=== PATIENT | male | born 1955 | race Caucasian/White ===

== ENCOUNTER 2017-11-20 07:52 | Emergency (ER) | payer SELFPAY ==
[2017-11-20] MEDS ORDERED: Aspirin 325 MG TAB ONE (08:40)
[2017-11-20 08:43] LABS: #Basophils 0.1 thou/uL (0.0-0.2); #Eosinphils 0.2 thou/uL (0.0-0.7); #Lymphocytes 1.6 thou/uL (1.20-3.40); #Monocytes 0.6 thou/uL (0.11-0.59); #Neutrophils 6.5 thou/uL (1.40-6.50); %Basophils 0.8 % (0.0-1.0); %Eosinophils 2.6 % (0.0-10.0); %Monocytes 6.4 % (0.0-10.0); %Neutrophils 72.3 % (42.0-75.0); Hemoglobin 13.4 g/dL (14.0-18.0); Mean Corpuscular HGB CONC 34.8 g/dL (32.0-36.0); Mean Corpuscular Hemoglobin 34.7 pg (27.0-31.0); Mean Corpuscular Volume 99.8 fL (78.0-98.0); Mean Platelet Volume 5.9 fL (7.4-10.4); Platelet Count 351 thou/uL (130-400); RBC Distribution Width 11.9 % (11.5-14.5); Red Blood Cell (RBC) Count 3.85 mill/uL (4.70-6.10); White Blood Cell (WBC) Count 8.9 thou/uL (4.8-10.8)
[2017-11-20 09:08] LABS: ALT (SGPT) 18 U/L (8-55); AST (SGOT) 21 U/L (5-34); Albumin 4.6 g/dL (3.4-4.8); Alkaline Phosphatase 67 U/L (40-150); Anion Gap 14 mmol/L (10-20); BUN (Urea Nitrogen) 20 mg/dL (8.4-25.7); Bilirubin, Total 0.6 mg/dL (0.2-1.2); Calc. Creatinine Clearance 0 mL/min (70-130); Calcium 9.6 mg/dL (7.8-10.44); Carbon Dioxide 27 mmol/L (23-31); Chloride 97 mmol/L (98-107); Estimated GFR-MDRD 84; Globulin 2.8 g/dL (2.4-3.5); Glucose 119 mg/dL (80-115); Lipase 27 U/L (8-78); Potassium 4.6 mmol/L (3.5-5.1); Protein, Total 7.4 g/dL (5.8-8.1); Sodium 133 mmol/L (136-145)
[2017-11-20 09:14] LABS: CKMB 2.2 ng/mL (0-6.6); Troponin I Less than 0.010 ng/mL (< 0.028)
--- NOTE | 2017-11-20 10:16 | RAD ---
CHEST ONE VIEW: HISTORY: A 62-year-old male with a history of weakness, diaphoresis, diarrhea, and dehydration. COMPARISON: 11/20/2015 FINDINGS: Monitor leads overly the chest. Healed right rib fractures are noted. Heart size is within normal l imits. There is an irregular shaped, abnormal opacity in the right upper lobe, measuring approximate ly 1 x 1.5 cm, which was not present on the prior study. This could represent a developing primary l marci mass. A nonemergent follow-up chest CT scan is recommended. IMPRESSION: 1. Approximately 1 x 1.5 cm in diameter, poorly circumscribed opacity seen in the region of the righ t upper lobe, worrisome for a developing small lung mass or scar. Consider nonemergent follow-up [facility] CT scan for further assessment. 2. Healed right rib fractures. 3. No evidence of other acute process. POS: OFF
[2017-11-20 10:39] LABS: Bilirubin Negative (Negative); Blood, Urine Negative (Negative); Clarity CLOUDY (Clear); Glucose, Urine (Dipstick) Negative (Negative); Leukocyte Negative (Negative); Nitrite Negative (Negative); Protein, Urine (Dipstick) Trace mg/dL (Neg-Trace); Specific Gravity, Urine 1.017 (1.002-1.036); pH, Urine 6.5 (5.0-9.0)
[2017-11-20 12:36] LABS: Troponin I Less than 0.010 ng/mL (< 0.028)
== END 2017-11-20 12:44 | disposition home or self-care (01) ==
LOC: ERS 07:52
DX: R53.1 Weakness (principal); J44.9 Chronic obstructive pulmonary disease, unspecified; I10 Essential (primary) hypertension; F17.210 Nicotine dependence, cigarettes, uncomplicated; Z71.6 Tobacco abuse counseling
CPT/HCPCS: 36415; 36416; 71045; 80053; 81003; 82553; 83690; 83880; 84484; 85025; 93005; 96360; 99406

== ENCOUNTER 2017-11-21 09:09 | Inpatient (IN) | payer OTHER, SELFPAY ==
[2017-11-21] MEDS ORDERED: Albuterol Sulfate 2.5 mg/0.5 ml Neb ONE ×3 (09:33)
[2017-11-21] MEDS ORDERED: Albuterol Sulfate 2.5 mg/3 ml Neb ONE (09:33)
[2017-11-21] MEDS ORDERED: Ondansetron HCl/PF 4 MG/2 ML Vial ONE (09:48)
[2017-11-21 10:53] LABS: #Eosinphils 0.1 thou/uL (0.0-0.7); #Lymphocytes 0.9 thou/uL (1.20-3.40); #Monocytes 0.5 thou/uL (0.11-0.59); #Neutrophils 9.1 thou/uL (1.40-6.50); %Basophils 0.4 % (0.0-1.0); %Lymphocytes 8.3 % (21.0-51.0); %Monocytes 4.3 % (0.0-10.0); Hemoglobin 13.1 g/dL (14.0-18.0); Mean Corpuscular HGB CONC 35.1 g/dL (32.0-36.0); Mean Corpuscular Hemoglobin 35.3 pg (27.0-31.0); Platelet Count 314 thou/uL (130-400); White Blood Cell (WBC) Count 10.6 thou/uL (4.8-10.8)
[2017-11-21 11:13] LABS: ALT (SGPT) 16 U/L (8-55); AST (SGOT) 19 U/L (5-34); Albumin 4.2 g/dL (3.4-4.8); Alkaline Phosphatase 62 U/L (40-150); Anion Gap 14 mmol/L (10-20); BUN (Urea Nitrogen) 14 mg/dL (8.4-25.7); Bilirubin, Total 0.6 mg/dL (0.2-1.2); CKMB 2.2 ng/mL (0-6.6); Calc. Creatinine Clearance 0 mL/min (70-130); Calcium 8.9 mg/dL (7.8-10.44); Carbon Dioxide 24 mmol/L (23-31); Chloride 100 mmol/L (98-107); Estimated GFR-MDRD Greater than 90; Globulin 2.5 g/dL (2.4-3.5); Glucose 169 mg/dL (80-115); Potassium 3.9 mmol/L (3.5-5.1); Protein, Total 6.7 g/dL (5.8-8.1); Sodium 134 mmol/L (136-145); Troponin I Less than 0.010 ng/mL (< 0.028)
[2017-11-21] MEDS ORDERED: Albuterol Sulfate 2.5 mg/3 ml Neb NEB PRN (11:32)
[2017-11-21] MEDS ORDERED: ISOVUE-370 76%-LOCM 1 ML ONE (11:42)
[2017-11-21] MEDS ORDERED: Acetaminophen 500 MG TAB PO PRN (11:49)
[2017-11-21] MEDS ORDERED: Sodium Chloride 0.9% 500 ML IV SCH (12:00)
--- NOTE | 2017-11-21 13:09 | RAD ---
PORTABLE AP CHEST X-RAY: 11/21/2017 HISTORY: Dyspnea. Shortness of breath. COMPARISON: 11/20/2017 FINDINGS: The cardiac silhouette and pulmonary vasculature are within normal limits. The previously described, slightly irregular density within the right upper lung zone is again seen. It is less conspicuous o n the current study but does persist. The left lung is clear. Remote right-sided rib fractures are again present. No other interval change. IMPRESSION: 1. Stable, slightly irregular density within the right upper lung zone. This is more conspicuous on the prior study but is also present on this study. A neoplastic process cannot be entirely excluded based on this examination. This could represent an area of scarring, but CT scan thorax is recommen ded on a nonemergent basis for further evaluation. 2. Remote right-sided rib fractures. POS: [facility]
[2017-11-21] MEDS: Sodium Chloride 0.9% 1,000 ML IV SCH ×2 (13:23→18:20)
[2017-11-21] MEDS: Azithromycin 250 MG TAB PO SCH (14:04)
[2017-11-21] MEDS: cefTRIAXone\\ROCEPHIN 1 GM in Sodium Chloride 0.9% 100 ML IVPB SCH (14:04)
--- NOTE | 2017-11-21 14:37 | CT ---
CT ANGIOGRAM CHEST WITH 3D RENDERING: HISTORY: A 62-year-old male with a history of dyspnea and COPD. TECHNIQUE: A CT examination of the chest is performed. FINDINGS: There are some scattered small bullous changes in both lungs, evidence for some chronic lung disease. Poorly circumscribed, somewhat spiculated mass in the right upper lobe, measuring 0.8 cm. Further evaluation with PET scan should be considered. No significant CT evidence for acute pulmonary emboli sm. No mediastinal mass or adenopathy. No significant pleural effusion. The visualized upper abdom en is unremarkable. IMPRESSION: 1. No significant CT evidence for acute pulmonary embolism. 2. Poorly circumscribed mass in the right upper lobe, worrisome for a lung carcinoma. Consider foll ow-up PET scan for further assessment. 3. This mass is a new finding when compared to a CT of 10/27/2015. CODE T POS: [facility]
--- NOTE | 2017-11-21 17:57 | HP ---
DATE OF ADMISSION: 11/21/2017 CHIEF COMPLAINT: Could not breathe. PRIMARY CARE PHYSICIAN: Dr. Cardoso at the [facility] in [place]. HISTORY OF PRESENT ILLNESS: This is a 62-year-old male with known COPD with last flare around 7 years ago, who complains that he was unable to breathe starting around 08:30 this morning. He states that it all started with itching and his skin turning bright red. He decided to take a shower and then progressively noticed that he could not get enough air and was unable to speak. He felt dizzy and lightheaded. He denies any precipitating factors or exposures. He has albuterol and used it this morning without any significant relief. He denies any nausea or vomiting. Denies chest pain or fevers. The patient yesterday was in the emergency room secondary to disorientation, weakness and dizziness as well as a similar episode of itching and redness all over. This occurred early in the morning while preparing for work. He states yesterday his breathing was "not bad." Patient denies any change in routine. Denies any missed medications. His usual use of albuterol is daily 1 or 2 puffs approximately 2-4 times per day. He is not on any other medications to control the symptoms. The only other change in his health history is vomiting that occurred 3 nights ago, as well as a complaint of stomach upset and diarrhea over the past few days, averaging 3-5 loose stools per day. He denies any travel or sick contacts. Denies any precipitants for this. By report from the emergency room physician, EMS found the patient with a systolic blood pressure in the 70s and a pulse ox of 81%, and the patient received 2 DuoNeb and 125 mg solu-medrol en route to [place]. Here, the patient has received 10 mg of albuterol and Hospitalist called for admission. ALLERGIES TO MEDICATIONS: NAPROXEN/ALEVE. Obese. CURRENT MEDICATIONS: Reconciled with the patient, 1. Lisinopril/hydrochlorothiazide unknown dose taken daily, last dose this morning. 2. Albuterol inhaler with daily use as noted above. 3. Thiamine 100 mg daily. 4. Multivitamin daily. 5. Diclofenac daily, unknown dose. PAST MEDICAL HISTORY: 1. Chronic obstructive pulmonary disease. 2. Hypertension. 3. Chronic pain in his shoulders and neck. 4. Osteoarthritis. 5. An abnormal chest x-ray identified yesterday. PAST SURGICAL HISTORY: Back and left wrist. 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 His surrogate decision maker is his and he is a FULL CODE. FAMILY HISTORY: Significant for a brother who of lung cancer, mom who of lung cancer, and a sister with brain cancer. REVIEW OF SYSTEMS: Positive for chills over the past 2 days. The vomiting, stomach upset, and diarrhea noted over the past few days. Negative for nausea or vomiting today, diarrhea today, chest pain, or fevers. All remaining review of systems are reviewed and negative. PHYSICAL EXAMINATION: VITAL SIGNS: Pulse 102, respirations 21, temperature 97.5. Blood pressure 113/ 70 (was 70/54 on arrival) and current pulse ox is 98% on 2 liters, was 89% on room air. GENERAL: He is awake, alert, responsive, able to speak in full sentences, now in no apparent distress. HEENT: Pupils are equal and round. Extraocular movements are intact. Oral mucosa is pink and slightly dry. NECK: Supple, nontender. LYMPHATICS: No palpable cervical or supraclavicular lymphadenopathy. LUNGS: Fair air movement. No audible wheezing, rhonchi, or rales. HEART: Distant heart sounds, normal S1 and S2, regular rate and rhythm, no audible murmurs. ABDOMEN: Soft. Present bowel sounds. Nontender, nondistended. EXTREMITIES: No clubbing, cyanosis, or edema. SKIN: No visible rashes. NEUROLOGIC: No gross deficits. PSYCHIATRIC: He is euthymic, linear, logical, goal directed thought process. LABORATORY DATA: Reviewed. CBC: 10.6, 13.1, 37.2, 314 with an MCV of 100. D-dimer is 1.78. Chemistry: 134, 3.9, 100, 24, 14, 0.83, 169. LFTs negative. Troponin negative. Chest x-ray is personally reviewed, which shows an abnormality in the right upper lobe, by report yesterday poorly circumscribed 1 x 1.5 cm, worrisome for developing lung mass or scar, healed right rib fractures and no evidence of acute process. IMPRESSION: 1. Acute respiratory failure with hypoxia secondary to COPD exacerbation. 2. SIRS criteria without focal source of infection. 3. Dehydration secondary to n/v/diarrhea with dizziness/weakness 4. Hypotension, likely secondary to above. However, cannot rule out sepsis. 3. History of hypertension, currently normotensive. 4. Chronic pain, on nonsteroidal anti-inflammatory drugs therapy. 5. Abnormal chest x-ray with further evaluation needed. 6. Daily alcohol use. 7. Tobacco abuse. PLAN: 1. Admission to the hospital. 2. CT of the chest with contrast to rule out PE, given the acute onset of his symptoms and abnormal d-dimer. We will hydrate with IV fluids and hold his DEENA inhibitor as well as his NSAIDs for the dehydration and for renal protection from the contrast. 3. Start Rocephin and azithromycin to cover for COPD exacerbation as well as continuing steroids. 4. IV fluid hydration, monitoring his blood pressure, monitoring for any signs of alcohol withdrawal with the ASE protocol. 5. We will obtain a lactate level. If diarrhea persists, will need stool studies. 6. Nicotine replacement. Monitor for signs/sx of alcohol withdrawal. 7. DVT prophylaxis with enoxaparin and SCDs. We will manage the patient's pain with Tylenol and tramadol while here avoiding NSAIDs due to the IV contrast. 8. Gastrointestinal prophylaxis not indicated. 9. Code status is FULL and surrogate decision maker is the patient's . The patient is at high risk given age, comorbidities, and current presentation. I reviewed the plan of care with the patient and his . No questions or further needs at end of evaluation. Addendum - CT-A negative for PE. It does show a 0.8 cm mass in the right upper lobe, spiculated and suspicious for malignancy. Discussed this with patient and his - that this will need a biopsy or other type of further evaluation. Will place consult for Pulmonology to evaluate current sx of COPD exacerbation as well as to answer questions on how to proceed with the evaluation of the mass. No questions or further needs at end of eval. MTDD
[2017-11-21] MEDS: Nicotine 21 MG PATCH TD SCH (21:13)
[2017-11-22] MEDS: Sodium Chloride 0.9% 1,000 ML IV SCH ×2 (04:41→17:14)
[2017-11-22 05:40] LABS: #Lymphocytes 0.5 thou/uL (1.20-3.40); #Monocytes 0.2 thou/uL (0.11-0.59); #Neutrophils 8.9 thou/uL (1.40-6.50); %Eosinophils 0.1 % (0.0-10.0); %Lymphocytes 5.6 % (21.0-51.0); %Neutrophils 92.3 % (42.0-75.0); Hemoglobin 10.3 g/dL (14.0-18.0); Mean Corpuscular HGB CONC 33.8 g/dL (32.0-36.0); Mean Corpuscular Hemoglobin 33.8 pg (27.0-31.0); Mean Platelet Volume 6.7 fL (7.4-10.4); Platelet Count 269 thou/uL (130-400); RBC Distribution Width 12.1 % (11.5-14.5); Red Blood Cell (RBC) Count 3.04 mill/uL (4.70-6.10); White Blood Cell (WBC) Count 9.6 thou/uL (4.8-10.8)
[2017-11-22 05:45] LABS: Anion Gap 12 mmol/L (10-20); BUN (Urea Nitrogen) 9 mg/dL (8.4-25.7); Calc. Creatinine Clearance 105 mL/min (70-130); Calcium 8.5 mg/dL (7.8-10.44); Carbon Dioxide 25 mmol/L (23-31); Chloride 101 mmol/L (98-107); Estimated GFR-MDRD Greater than 90; Glucose 145 mg/dL (80-115); Potassium 3.6 mmol/L (3.5-5.1); Sodium 134 mmol/L (136-145)
[2017-11-22] MEDS: Azithromycin 250 MG TAB PO SCH (08:27)
[2017-11-22] MEDS: Enoxaparin Sodium 40 MG/0.4 ML SYRINGE SC SCH (08:27)
[2017-11-22] MEDS: cefTRIAXone\\ROCEPHIN 1 GM in Sodium Chloride 0.9% 100 ML IVPB SCH (12:42)
--- NOTE | 2017-11-22 13:18 | PDOC.PN ---
- Subjective Encounter Start Date: 11/22/17 Encounter Start Time: 11:30 Subjective: pt up in bed no complains - Objective Resuscitation Status: Resuscitation Status FULL:Full Resuscitation Vital Signs & Weight: Vital Signs (12 hours) Temp Pulse Resp BP BP Pulse Ox 11/22/17 12:27 148/80 H 11/22/17 11:59 97.5 F L 87 16 148/80 H 100 11/22/17 08:30 97.5 F L 81 18 129/88 100 11/22/17 07:50 97.5 F L 81 18 129/88 100 11/22/17 04:00 97.8 F 87 20 124/83 98 Weight Weight 135 lb 7 oz I&O: 11/21/17 11/22/17 11/23/17 06:59 06:59 06:59 Intake Total 1379 Output Total 1200 Balance 179 Result Diagrams: 11/22/17 04:15 11/22/17 04:15 Phys Exam - Physical Examination HEENT: PERRLA, moist MMs, sclera anicteric, TM's clear, oral pharynx no lesions , 2+ tonsils Neck: no nodes, no JVD, supple, full ROM Respiratory: wheezing present Cardiovascular: RRR, no significant murmur, no rub, gallop, irregular Gastrointestinal: soft, non-tender, no distention, positive bowel sounds Musculoskeletal: no edema, pulses present, edema present Neurological: non-focal, normal sensation, moves all 4 limbs Dx/Plan (1) COPD exacerbation Code(s): J44.1 - CHRONIC OBSTRUCTIVE PULMONARY DISEASE W (ACUTE) EXACERBATION Status: Acute (2) Pulmonary mass Code(s): R91.8 - OTHER NONSPECIFIC ABNORMAL FINDING OF LUNG FIELD Status: Acute - Plan will continue tx for copd exab -: pulmonary consulted for lung lesion, pt has no weight loss -: he has a nicotine patch * . Review of Systems - Review of Systems ENT: negative: Ear Pain, Ear Discharge, Nose Pain, Nose Discharge, Nose Congestion, Mouth Pain, Mouth Swelling, Throat Pain, Throat Swelling, Other Respiratory: negative: Cough, Dry, Shortness of Breath, Hemoptysis, SOB with Excertion, Pleuritic Pain, Sputum, Wheezing Cardiovascular: negative: chest pain, palpitations, orthopnea, paroxysmal nocturnal dyspnea, edema, light headedness, other Gastrointestinal: negative: Nausea, Vomiting, Abdominal Pain, Diarrhea, Constipation, Melena, Hematochezia, Other Genitourinary: negative: Dysuria, Frequency, Incontinence, Hematuria, Retention , Other - Medications/Allergies Allergies/Adverse Reactions: Allergies Allergy/AdvReac Type Severity Reaction Status Date / Time naproxen sodium [From Aleve] Allergy Unknown Verified 04/08/13 12:18 venom-honey bee Allergy Verified 10/28/15 00:21 Medications: Current Medications Acetaminophen (Tylenol) 500 mg PO Q6H PRN PRN Reason: Fever/Mild Pain Albuterol Sulfate (Ventolin) 2.5 mg NEB [id number] PRN PRN Reason: SOB &/or Wheezing Albuterol/Ipratropium (Duoneb) 3 ml NEB [id number] PRN PRN Reason: SOB &/or Wheezing Azithromycin (Zithromax) 500 mg PO DAILY [facility] Last Admin: 11/22/17 08:27 Dose: 500 mg Enoxaparin Sodium (Lovenox) 40 mg SC 0900 [facility] Last Admin: 11/22/17 08:27 Dose: 40 mg Ceftriaxone Sodium 1 gm/ (Sodium Chloride) 100 mls @ 200 mls/hr IVPB Q24HR [facility] Last Admin: 11/22/17 12:42 Dose: 100 mls Sodium Chloride (Normal Saline 0.9%) 1,000 mls @ 100 mls/hr IV .Q10H [facility] Last Admin: 11/22/17 04:41 Dose: 1,000 mls Methylprednisolone Sodium Succinate (Solu-Medrol) 40 mg IVP Q6HR [facility] Last Admin: 11/22/17 12:39 Dose: 40 mg Mometasone Furoate/Formoterol Fumar (Dulera 200 Mcg/5 Mcg Inhaler) 2 puff INH BID-RT [facility] Nicotine (Nicoderm Patch) 21 mg TD 1900 [facility] Last Admin: 11/21/17 21:13 Dose: 21 mg
[2017-11-22] MEDS: Mometasone/Formoterol 120 PUFF INHALER INH SCH (18:36)
[2017-11-22] MEDS: Nicotine 21 MG PATCH TD SCH (19:10)
--- NOTE | 2017-11-22 19:34 | CON ---
DATE OF CONSULTATION: 11/22/2017 HISTORY OF PRESENT ILLNESS: Froilan English is a 62-year-old gentleman admitted to the hospital with shor tness of breath, coughing, and wheezing, could barely walk 100 feet without getting short of breath. Two pack a day smoker all his life. In 2016, he developed rib pain and tachypnea following a fall a nd apparently had a right-sided hydropneumothorax, extensive soft tissue swelling and a hydrocele at that time. A chest tube was placed in at the time of discharge to home. He normally seeks treatment at the [facility]. He now presents to the hospital yesterday with symptoms of increasing shortness of breath, we akness, cough, weight loss, cough, fever, chills, sweats. CAT scan showed no pulmonary emboli, but a right upper lung nodule 1.5 cm new. He has had no previous history of TB or pneumonia. PAST MEDICAL HISTORY: Pertinent for hypertension, COPD, previous stroke, previous right pneumothorax following a fall, previous hydrocele. He sees [facility] for [facility] care. PAST SURGICAL HISTORY: Wrist surgery, right-sided chest tube. SOCIAL HISTORY: Alcohol 6 packs a day. FAMILY HISTORY: Pertinent in that mother and brother both of lung cancer. MEDICATIONS: From home, thiamine 100, lisinopril 20, albuterol inhaler. REVIEW OF SYSTEMS: Otherwise, 10-point negative. PHYSICAL EXAMINATION: GENERAL: He appears to be in no acute distress. VITAL SIGNS: Blood pressure 140/80, temperature 97, pulse 87, sats 97% room air. CHEST: Decreased breath sounds, diffuse wheezing. CARDIAC: Normal S1, S2, no gallops. ABDOMEN: Soft, no masses. IMPRESSION: 1. Chronic obstructive pulmonary disease exacerbation, bronchitis. 2. Right upper lung nodule. 3. Tobacco abuse, alcohol abuse. He was told to refrain from smoking and drinking completely. PLAN: We would like to do a pulmonary function test if possible prior to his discharge. Outpatient workup was lung nodule, at this time it is only 1.5 cm. May consider doing a PET scan depending on h is PFT further recommendation. Consultation note, 70 minutes, 50% in direct patient care.
[2017-11-23] MEDS: Sodium Chloride 0.9% 1,000 ML IV SCH (03:11)
[2017-11-23] MEDS: Mometasone/Formoterol 120 PUFF INHALER INH SCH (07:35)
[2017-11-23] MEDS: Enoxaparin Sodium 40 MG/0.4 ML SYRINGE SC SCH (08:43)
[2017-11-23] MEDS: Azithromycin 250 MG TAB PO SCH (08:43)
[2017-11-23 10:10] LABS: #Lymphocytes 0.7 thou/uL (1.20-3.40); #Monocytes 0.4 thou/uL (0.11-0.59); #Neutrophils 12.1 thou/uL (1.40-6.50); %Basophils 0.2 % (0.0-1.0); %Eosinophils 0.1 % (0.0-10.0); %Lymphocytes 5.4 % (21.0-51.0); %Monocytes 2.6 % (0.0-10.0); %Neutrophils 91.7 % (42.0-75.0); Hemoglobin 10.7 g/dL (14.0-18.0); Mean Corpuscular HGB CONC 35.3 g/dL (32.0-36.0); Mean Corpuscular Hemoglobin 35.5 pg (27.0-31.0); Mean Platelet Volume 6.9 fL (7.4-10.4); Platelet Count 273 thou/uL (130-400); Red Blood Cell (RBC) Count 3.01 mill/uL (4.70-6.10); White Blood Cell (WBC) Count 13.3 thou/uL (4.8-10.8)
[2017-11-23 10:26] LABS: Anion Gap 10 mmol/L (10-20); BUN (Urea Nitrogen) 11 mg/dL (8.4-25.7); Calc. Creatinine Clearance 98 mL/min (70-130); Calcium 8.4 mg/dL (7.8-10.44); Carbon Dioxide 27 mmol/L (23-31); Chloride 100 mmol/L (98-107); Estimated GFR-MDRD Greater than 90; Glucose 119 mg/dL (80-115); Potassium 3.5 mmol/L (3.5-5.1); Sodium 133 mmol/L (136-145)
--- NOTE | 2017-11-23 10:58 | PRG ---
DATE OF SERVICE: 11/23/2017 This morning he is better. He is less short of breath, less coughing. I discussed with the patient at length and the about they need to have an outpatient PET scan. PHYSICAL EXAMINATION: VITAL SIGNS: Blood pressure 143/85, sats are 96 on room air, respiration 14, temperature 97. CHEST: Chest revealed decreased breath sounds without any wheezing. CARDIAC: Normal S1, S2, no gallops. ABDOMEN: Soft, no masses. IMPRESSION: 1. Chronic obstructive pulmonary disease exacerbation. 2. Bronchitis. 3. Tobacco abuse. 4. Lung nodule. PLAN: Following the PFT he could be discharged home. I could see him in the office on an outpatient basis to schedule a PET scan.
[2017-11-23] MEDS ORDERED: Doxycycline 100 MG CAP PO SCH ×2 (11:00→21:00)
[2017-11-23 11:47] VITALS: BP 144/84; TEMP 98.1
[2017-11-23 14:31] VITALS: BMI 20.7
[2017-11-24] MEDS ORDERED: predniSONE 20 MG TAB PO SCH (08:00)
== END 2017-11-23 16:01 | disposition home or self-care (01) | DRG 189 ==
LOC: ERS 09:09 → 2SE 11:20
PROVIDERS: ADMIT Family Medicine; ATTEND Family Medicine
DX: J96.01 Acute respiratory failure with hypoxia (principal); J44.1 Chronic obstructive pulmonary disease with (acute) exacerbation; J44.0 Chronic obstructive pulmonary disease with (acute) lower respiratory infection; F17.210 Nicotine dependence, cigarettes, uncomplicated; J20.9 Acute bronchitis, unspecified; E86.0 Dehydration; G89.29 Other chronic pain; I10 Essential (primary) hypertension; R91.8 Other nonspecific abnormal finding of lung field
CPT/HCPCS: 36415; 71045; 71275; 80048; 80053; 82553; 83605; 84484; 85025; 85379; 94644; 99406; J0696; J1650; J2405; J2920; J7050; J7611

== ENCOUNTER 2017-12-24 10:27 | Outpatient (CLI) | payer OTHER ==
--- NOTE | 2017-12-24 13:29 | PET ---
NUCLEAR MEDICINE FDG PET CT: (Positron Emission Tomography) DATE: 12/24/17 HISTORY: 62-year-old male with solitary pulmonary nodule. COMPARISON: None available. TECHNIQUE: IV injection F-18 Fluorodeoxyglucose (FDG) dose: 13.4 mCi PET and attenuation-correction CT performed from skull base to proximal thighs. FINDINGS: SUV (standard uptake value) numbers given are maximum SUV's: An approximately 8 x 10 x 10 mm spiculated pulmonary nodule in the right upper lobe was demonstrated on the CT pulmonary angiogram of 11/21/17. This lesion exhibits no hypermetabolic activity (SUV 0.4). There is no hypermetabolic activity in the mediastinum, hilar, pleura, neck, abdomen, or pelvis. No h ypermetabolic activity in the skeletal structures. IMPRESSION: 1. The 10 x 8 x 8 mm right upper lobe spiculated pulmonary nodule is not FDG-avid. 2. Recommend serial follow-up noncontrast chest CTs, beginning in 3 months. Because of its small siz e and distance from the pleural surface, percutaneous CT guided biopsy would be difficult. TOO Nuñez POS: [facility]
== END 2017-12-24 10:28 | disposition home or self-care (01) ==
LOC: PET 10:27
PROVIDERS: ATTEND Internal Medicine
DX: D38.1 Neoplasm of uncertain behavior of trachea, bronchus and lung (principal); R91.1 Solitary pulmonary nodule
CPT/HCPCS: 78815; A9552

== ENCOUNTER 2019-07-11 16:04 | Observation (INO) | payer OTHER ==
--- NOTE | 2019-07-11 17:14 | RAD ---
Portable chest: HISTORY: Shortness of breath. History COPD COMPARISON: 11/21/2017 FINDINGS: Lung mane are clear. Heart and mediastinum appear unremarkable. Vascularity is normal. Visualized osseous structures unremarkable. Old right-sided rib fractures again noted. IMPRESSION: No acute finding
[2019-07-11 17:16] LABS: Bilirubin Negative (Negative); Blood, Urine Negative (Negative); Clarity Clear (Clear); Glucose, Urine (Dipstick) Normal (Negative); Leukocyte Negative Leu/uL (Negative); Nitrite Negative (Negative); Protein, Urine (Dipstick) Negative (Neg-Trace); Urobilinogen Normal mg/dL (Less than 2)
[2019-07-11] MEDS ORDERED: methylPREDNISolone Sod Succ/PF 125 MG/2 ML VIAL ONE (17:27)
[2019-07-11 17:31] LABS: Mean Corpuscular Hemoglobin 34.3 pg (27.0-31.0); Mean Corpuscular Volume 98.2 fL (78.0-98.0); Mean Platelet Volume 6.7 fL (7.4-10.4); Platelet Count 403 thou/uL (130-400); RBC Distribution Width 11.9 % (11.5-14.5); Red Blood Cell (RBC) Count 4.38 mill/uL (4.70-6.10); White Blood Cell (WBC) Count 8.4 thou/uL (4.8-10.8)
[2019-07-11 17:35] LABS: #Basophils 0.1 thou/uL (0.0-0.2); #Lymphocytes 1.5 thou/uL (1.20-3.40); #Monocytes 0.4 thou/uL (0.11-0.59); #Neutrophils 6.2 thou/uL (1.40-6.50); %Basophils 1.5 % (0.0-1.0); %Eosinophils 0.4 % (0.0-10.0); %Lymphocytes 18.4 % (21.0-51.0); %Neutrophils 74.6 % (42.0-75.0); Band 9 % (5-11); Eosinophils 1 % (0-10); Lymphocytes 15 % (21-51); MDiff Complete? YES; Macrocytosis SLIGHT = 6-15 cells (100X) (0-5/hpf); Monocytes 4 % (0-10); Neutrophil 69 % (42-75); Platelet Morphology Comment Appears Increased; Polychromasia MODERATE = 3-4 cells (100X) (0-2/hpf); Reactive Lymphocytes 2 % (0-10)
[2019-07-11 17:38] LABS: ALT (SGPT) 72 U/L (8-55); AST (SGOT) 101 U/L (5-34); Albumin 4.8 g/dL (3.4-4.8); Alkaline Phosphatase 89 U/L (40-110); Anion Gap 20 mmol/L (10-20); BUN (Urea Nitrogen) 10 mg/dL (8.4-25.7); Bilirubin, Total 0.9 mg/dL (0.2-1.2); CK (CPK) 281 U/L (30-200); Calc. Creatinine Clearance 0 mL/min (70-130); Calcium 9.6 mg/dL (7.8-10.44); Carbon Dioxide 23 mmol/L (23-31); Chloride 94 mmol/L (98-107); Estimated GFR-MDRD Greater than 90; Globulin 3.3 g/dL (2.4-3.5); Glucose 74 mg/dL (80-115); Potassium 4.5 mmol/L (3.5-5.1); Protein, Total 8.1 g/dL (5.8-8.1); Sodium 132 mmol/L (136-145)
[2019-07-11 17:53] LABS: CKMB 3.5 ng/mL (0-6.6)
[2019-07-11] MEDS ORDERED: Lorazepam 2 MG/ML VIAL ONE ×2 (17:53→21:55)
--- NOTE | 2019-07-11 18:16 | CT ---
CT head without contrast: Multiple axial tomograms obtained through the head without IV enhancement. INDICATIONS: Tremors COMPARISON: None FINDINGS: Ventricles have normal size and position. No evidence of intracranial mass, hemorrhage, edema, or infarct. Visualized sinuses and mastoids appear clear. Bony calvarium appears unremarkable. IMPRESSION: No acute finding
[2019-07-11 19:50] LABS: Lactic Acid 3.9 mmol/L (0.5-2.2)
[2019-07-11 21:19] LABS: Troponin I 0.037 ng/mL (< 0.028)
--- NOTE | 2019-07-11 21:55 | ULT ---
GALLBLADDER ULTRASOUND: Indications: Epigastric pain. FINDINGS: The gallbladder has a normal sonographic appearance. No evidence of gallstones. Common duct is normal caliber. Visualized liver is unremarkable. Right kidney appears normal. The pancreas is obscured. Te chnologist describes negative English's sign. IMPRESSION: Unremarkable gallbladder ultrasound. POS: [facility]
[2019-07-12 00:13] LABS: Troponin I 0.028 ng/mL (< 0.028)
--- NOTE | 2019-07-12 06:14 | HP ---
PRIMARY CARE PHYSICIAN: Dr. Cardoso at the [facility]. CHIEF COMPLAINT: Trouble breathing. HISTORY OF PRESENT ILLNESS: Mr. English is a pleasant 63-year-old gentleman, who has a history of COPD as well as alcohol abuse. He was in his usual state of health until approximately 2 to 3 weeks ago. He says he started having problems breathing. He says that he talked to a nurse and then went to the [facility]. There they gave him "some water pills" and then he felt good for about 3 to 4 days, but then his shortness of breath and cough started again. He also said he had no energy. He noticed shortness of breath with "doing certain things," but he could not give me any explanation of what those things were. He is a long-time smoker and he also says that he was feeling shaky and jittery and off balance. As a result of these complaints, he came to the ER for evaluation. There, they did a chest x-ray and it was clear, but noticed significant wheezing on exam. He also appeared to be potentially going through alcohol withdrawal and he is being placed in observation for this. By the time I saw him, which is several hours later, he says he feels fine. He is lying on the stretcher, watching TV, and appears in absolutely no distress. REVIEW OF SYSTEMS: All systems were reviewed and are negative except for that mentioned in the history of present illness. PAST MEDICAL HISTORY: Significant for chronic obstructive pulmonary disease, hypertension, chronic pain, osteoarthritis, and alcohol abuse. PAST SURGICAL HISTORY: He has had back surgery and wrist surgery. ALLERGIES: TO BEE VENOM AND NAPROSYN. SOCIAL HISTORY: He is . He does not have any children. He admits to 6 beers a day for the last 40 years. He does not feel that he drinks too much. When asked if he has ever had any problems related to alcohol, he says he has not, but then when I asked him if he has ever had any DUI, he says he has had "a couple." He admits to smoking about a pack and a half of cigarettes a day for at least 40 years. FAMILY HISTORY: Significant for lung cancer in his brother as well as mom had lung cancer. Sister had brain cancer and diabetes. MEDICATIONS: He was not able to name all of his medicines, but he said he is on lisinopril and a B vitamin, and an albuterol inhaler. PHYSICAL EXAMINATION: GENERAL: He is alert and oriented. He appears chronically ill and a bit disheveled. He is well developed, but does appear a bit thin. VITAL SIGNS: His blood pressure is 136/86, heart rate 115, respiratory rate of 27, and temperature is 98.3. HEENT: Pupils are equal, round, and reactive. Extraocular muscles are intact. His sclerae are anicteric. Throat, no erythema, no exudates. NECK: No adenopathy. No bruits. LUNGS: He has bilateral expiratory wheezing throughout both lung mane. There were no rales. No rhonchi. CARDIOVASCULAR: He has normal S1 and S2. His heart rate is tachycardic. There are no murmurs, clicks, or rubs. ABDOMEN: Soft. It is nontender and nondistended. Positive for bowel sounds. No rebound. No guarding. No organomegaly. EXTREMITIES: There is no edema. No calf tenderness. No joint effusions. SKIN AND INTEGUMENT: There are no skin changes. No rash. LABORATORY DATA: Lab results, sodium is 132, potassium 4.5, chloride is 94, CO2 is 23, BUN of 10, creatinine 0.85, glucose is 74. His white blood cell count is 8.4, hemoglobin is 15, hematocrit is 43, platelet count is 403. Urinalysis is essentially negative. IMAGING: He had an abdominal ultrasound, there was an unremarkable gallbladder ultrasound, and also on the abdominal exam, he did have a palpable aorta and aortic impulse in the abdomen. CT scan of the brain was negative. ASSESSMENT: This is a 63-year-old gentleman, who presents to the emergency room with acute on chronic respiratory failure due to chronic obstructive pulmonary disease exacerbation. He also has mild alcohol withdrawal symptoms. He says his last drink was about a day and a half ago. 1. Chronic obstructive pulmonary disease exacerbation. We will place him on DuoNeb. He was given steroids in the ER. Continue the DuoNeb. He does not appear to have any infection. Therefore, we will hold off on antibiotics. 2. Alcohol withdrawal. He has been given 2 mg of lorazepam in the ER. We will go ahead and give him a dose orally and reassess the need later in the afternoon. 3. We will place him on a banana bag. He has been counseled on the need to quit drinking as well as smoking, the dangers of which were explained in detail and the dangers and risk to the public health was also explained to him with regard to the alcohol abuse. Further recommendations will depend on the patient's clinical course. Job ID: [id number]
[2019-07-12 08:24] VITALS: BMI 18.7
[2019-07-12] MEDS ORDERED: Diazepam 5 MG TAB PO PRN (08:36)
[2019-07-12 08:43] LABS: #Lymphocytes 0.4 thou/uL (1.20-3.40); #Monocytes 0.2 thou/uL (0.11-0.59); #Neutrophils 3.2 thou/uL (1.40-6.50); %Basophils 0.1 % (0.0-1.0); %Eosinophils 0.1 % (0.0-10.0); %Lymphocytes 10.1 % (21.0-51.0); %Monocytes 5.3 % (0.0-10.0); %Neutrophils 84.4 % (42.0-75.0); Hemoglobin 13.1 g/dL (14.0-18.0); Mean Corpuscular HGB CONC 34.4 g/dL (32.0-36.0); Mean Corpuscular Hemoglobin 33.9 pg (27.0-31.0); Mean Corpuscular Volume 98.6 fL (78.0-98.0); Mean Platelet Volume 6.8 fL (7.4-10.4); Platelet Count 302 thou/uL (130-400); Red Blood Cell (RBC) Count 3.87 mill/uL (4.70-6.10); White Blood Cell (WBC) Count 3.8 thou/uL (4.8-10.8)
[2019-07-12] MEDS ORDERED: Diazepam 5 MG TAB PO SCH (08:45)
[2019-07-12] MEDS ORDERED: Thiamine HCl 200 MG/2 ML VIAL IM SCH (08:45)
[2019-07-12 08:50] LABS: Anion Gap 17 mmol/L (10-20); BUN (Urea Nitrogen) 16 mg/dL (8.4-25.7); Calc. Creatinine Clearance 71 mL/min (70-130); Calcium 9.1 mg/dL (7.8-10.44); Carbon Dioxide 22 mmol/L (23-31); Chloride 96 mmol/L (98-107); Estimated GFR-MDRD Greater than 90; Glucose 157 mg/dL (80-115); Potassium 4.1 mmol/L (3.5-5.1); Sodium 131 mmol/L (136-145)
[2019-07-12] MEDS ORDERED: Mometasone 200 MCG/Formoterol 5 MCG 120 PUFF INHALER INH SCH (09:00)
[2019-07-12] MEDS: Multivitamins, Adult 10 ML, Folic Acid 1 MG, Thiamine HCl 100 MG in Dextrose 5 %-0.45 %... IV SCH (10:02)
[2019-07-12] MEDS: Famotidine 20 MG TAB PO SCH ×2 (10:03→19:58)
[2019-07-12] MEDS: Folic Acid 1 MG TAB PO SCH (10:03)
[2019-07-12] MEDS: Lorazepam 1 MG TAB PO SCH ×3 (10:03→19:58)
[2019-07-12] MEDS: Lisinopril 20 MG TAB PO SCH (10:03)
[2019-07-12] MEDS: Multivitamin W/ Minerals 1 TAB PO SCH (10:03)
--- NOTE | 2019-07-12 11:54 | PDOC.HOSPP ---
- Subjective Encounter Date: 07/12/19 Encounter Time: 10:45 Subjective: no chest pain or sob feels better has tremors of b/l hand - Objective Vital Signs & Weight: Vital Signs (12 hours) Temp Pulse Resp BP Pulse Ox 07/12/19 07:48 97.6 F 102 H 24 H 185/90 H 95 Weight Weight 123 lb Result Diagrams: 07/12/19 08:30 07/12/19 08:30 Hospitalist ROS - Medication Medications: Active Medications Generic Name Dose Route Start Last Admin Trade Name Freq PRN Reason Stop Dose Admin Famotidine 20 mg 07/12/19 09:00 07/12/19 10:03 Pepcid PO 20 mg BID CAROL Administration Folic Acid 1 mg 07/12/19 09:00 07/12/19 10:03 Folvite PO 1 mg DAILY CAROL Administration Multivitamins 10 ml/ Folic 1,011.2 mls @ 75 mls/hr 07/12/19 07:41 07/12/19 10 :02 Acid 1 mg/ Thiamine HCl 100 mg IV 1,011.2 mls / Dextrose/Sodium Chloride Q24HR CAROL Administration Magnesium Sulfate 1 gm/ Sodium 102 mls @ 102 mls/hr 07/12/19 08:45 07/12/19 10:02 Chloride IVPB 07/12/19 12:00 102 mls 0845 CAROL Administration Iron/Minerals/Multivitamins 1 tab 07/12/19 09:00 07/12/19 10:03 Theragran M PO 1 tab DAILY CAROL Administration Lisinopril 20 mg 07/12/19 09:00 07/12/19 10:03 Zestril PO 20 mg DAILY CAROL Administration Lorazepam 1 mg 07/12/19 09:00 07/12/19 10:03 Ativan PO 1 mg TID CAROL Administration Thiamine HCl 100 mg 07/12/19 08:45 07/12/19 10:02 Thiamine Hcl IM 07/12/19 12:00 100 mg ONE CAROL Administration - Exam General Appearance: awake alert Eye: PERRL, anicteric sclera ENT: no oropharyngeal lesions, moist mucosa Neck: supple, no JVD Heart: RRR, no murmur Respiratory: no wheezes, no rales, rhonchi Gastrointestinal: soft, non-tender, non-distended Extremities: no cyanosis, no edema Neurological: cranial nerve grossly intact, no focal deficits Psychiatric: normal affect, A&O x 3 Hosp A/P (1) COPD exacerbation Code(s): J44.1 - CHRONIC OBSTRUCTIVE PULMONARY DISEASE W (ACUTE) EXACERBATION Status: Acute (2) Alcohol abuse Code(s): F10.10 - ALCOHOL ABUSE, UNCOMPLICATED Status: Chronic (3) Alcohol withdrawal Code(s): F10.239 - ALCOHOL DEPENDENCE WITH WITHDRAWAL, UNSPECIFIED Status: Acute (4) Tobacco abuse Code(s): Z72.0 - TOBACCO USE Status: Chronic - Plan responding well to current medications is on nebs, dulera, ativan bid, lisinopril hemostable ASE protocol dc plan in am if stable to ambulate in hallway as tolerated
[2019-07-12] MEDS: Mometasone 200 MCG/Formoterol 5 MCG 120 PUFF INHALER INH SCH ×2 (13:36→19:16)
[2019-07-12] MEDS ORDERED: Ondansetron PF 4 MG/2 ML Vial IVP PRN (21:52)
[2019-07-12] MEDS ORDERED: Ondansetron ODT 4 MG TAB PO PRN (21:53)
[2019-07-12] MEDS ORDERED: Nicotine 14 MG PATCH TD SCH (22:00)
[2019-07-13] MEDS ORDERED: Diazepam 5 MG TAB PO PRN (04:00)
[2019-07-13] MEDS: Mometasone 200 MCG/Formoterol 5 MCG 120 PUFF INHALER INH SCH (07:15)
[2019-07-13 08:00] VITALS: BP 130/61; TEMP 97.5
[2019-07-13] MEDS ORDERED: Magnesium Oxide 400 MG TAB PO SCH (09:00)
[2019-07-13] MEDS ORDERED: Thiamine 100 MG TAB PO SCH (09:00)
[2019-07-13] MEDS: Famotidine 20 MG TAB PO SCH (09:32)
[2019-07-13] MEDS: Lisinopril 20 MG TAB PO SCH (09:33)
[2019-07-13] MEDS: Lorazepam 1 MG TAB PO SCH (09:33)
[2019-07-13] MEDS: Multivitamin W/ Minerals 1 TAB PO SCH (09:33)
[2019-07-13] MEDS: Folic Acid 1 MG TAB PO SCH (09:33)
[2019-07-13] MEDS: Multivitamins, Adult 10 ML, Folic Acid 1 MG, Thiamine HCl 100 MG in Dextrose 5 %-0.45 %... IV SCH (09:34)
--- NOTE | 2019-07-13 18:17 | DIS ---
DATE OF ADMISSION: 07/11/2019 DATE OF DISCHARGE: 07/13/2019 DISCHARGE DISPOSITION: Home. PRIMARY DISCHARGE DIAGNOSES: Acute chronic obstructive pulmonary disease exacerbation, resolving; alcohol abuse with withdrawal, resolving; and tobacco abuse. PROCEDURES DONE DURING HOSPITALIZATION: The patient has had chest x-ray done, which showed no acute findings. CT of brain without contrast showed no acute findings. Abdominal ultrasound done for complaints of epigastric pain was unremarkable. This was mainly right upper quadrant with no abnormality seen in the gallbladder. Hemoglobin and hematocrit of 13 and 38, platelet count 302, MCV is 98 with 84% neutrophils, white count of 3.8. BUN 16, creatinine 0.8. AST 101, ALT 72, alkaline phosphatase 89, total bilirubin 0.9, and MCV was 98. DISCHARGE MEDICATIONS: The patient to continue: 1. DuoNeb q.6 hourly p.r.n. 2. Folic acid 1 mg p.o. daily. 3. Thiamine 100 mg p.o. daily. 4. Lisinopril 10 mg p.o. daily. 5. Ultram p.r.n. for pain. 6. Dulera inhaler 2 puffs twice daily. ALLERGIES: NAPROSYN AND HONEY BEE. DISCHARGE PLAN: The patient to follow up with his primary care physician at the [facility] in 1 week. BRIEF COURSE DURING HOSPITALIZATION: The patient initially got admitted with complaints of shortness of breath. He was also found to be having tremors on arrival. He admitted to drinking around 6 beers a day and the last drink was more than 36 hours prior to arrival here. He was found to be in acute COPD exacerbation with ongoing tobacco abuse. The patient was placed on steroids, nebulization along with [facility] protocol for alcohol withdrawal. He has responded well to these measures. He is wanting to go home. He was counseled to slowly wean off from his drinking habit. He did not want any medications for alcohol withdrawal on discharge as they were making him sleepy. He has otherwise remained hemodynamically stable and will be shortly discharged home. Please note, I have seen and examined the patient on the day of discharge. Job ID: [id number]
--- NOTE | 2019-07-16 08:45 | EKG ---
Test Reason : Blood Pressure : / mmHG Vent. Rate : 110 BPM Atrial Rate : 110 BPM P-R Int : 128 ms QRS Dur : 084 ms QT Int : 326 ms P-R-T Axes : 082 267 075 degrees QTc Int : 441 ms Sinus tachycardia Right superior axis deviation Pulmonary disease pattern Abnormal ECG Confirmed by GEOVANNY MOSQUERA D.O. ([id number]), editor producer ADA DOBSON ([id number]) on 07/16/2019 8:44:44 AM Referred By: Confirmed By:GEOVANNY MOSQUERA D.O.
== END 2019-07-13 11:34 | disposition home or self-care (01) ==
LOC: ERS 16:04 → ERHOLD 20:40 → 2SW 07-12 07:24
PROVIDERS: ADMIT Internal Medicine; ATTEND Internal Medicine
DX: J44.1 Chronic obstructive pulmonary disease with (acute) exacerbation (principal); F17.210 Nicotine dependence, cigarettes, uncomplicated; F10.239 Alcohol dependence with withdrawal, unspecified; I10 Essential (primary) hypertension; G89.29 Other chronic pain; M19.90 Unspecified osteoarthritis, unspecified site; Z79.899 Other long term (current) drug therapy; Z88.6 Allergy status to analgesic agent; Z91.030 Bee allergy status
CPT/HCPCS: 36415; 70450; 71045; 76705; 80048; 80053; 81003; 82140; 82550; 82553; 83605; 84443; 84484; 85025; 87804; 93005; 94640; 96361; 96365; 96366; 96367; 96374; 96375; 96376; G0378; J2060; J2930; J3411; J3475; J3490; J7042; J7620

== ENCOUNTER 2019-10-06 00:02 | Inpatient (IN) | payer OTHER ==
[2019-10-06] MEDS ORDERED: Ondansetron PF 4 MG/2 ML Vial ONE ×2 (01:03→11:47)
[2019-10-06] MEDS ORDERED: Morphine 4 MG/ML VIAL ONE (01:03)
[2019-10-06] MEDS ORDERED: Orphenadrine Citrate 60 MG/2 ML VIAL IM SCH (01:15)
[2019-10-06 02:20] LABS: #Basophils 0.1 thou/uL (0.0-0.2); #Eosinphils 0.1 thou/uL (0.0-0.7); #Lymphocytes 1.4 thou/uL (1.20-3.40); #Monocytes 0.5 thou/uL (0.11-0.59); #Neutrophils 10.9 thou/uL (1.40-6.50); %Basophils 0.5 % (0.0-1.0); %Eosinophils 0.6 % (0.0-10.0); %Lymphocytes 10.7 % (21.0-51.0); %Monocytes 3.7 % (0.0-10.0); %Neutrophils 84.4 % (42.0-75.0); Hemoglobin 12.3 g/dL (14.0-18.0); Mean Corpuscular HGB CONC 34.8 g/dL (32.0-36.0); Mean Corpuscular Volume 97.6 fL (78.0-98.0); Mean Platelet Volume 6.3 fL (7.4-10.4); Platelet Count 288 thou/uL (130-400); RBC Distribution Width 11.8 % (11.5-14.5); White Blood Cell (WBC) Count 12.9 thou/uL (4.8-10.8)
[2019-10-06] MEDS ORDERED: Fentanyl 100 MCG/2 ML VIAL ONE ×3 (02:21→15:36)
[2019-10-06 02:26] LABS: PTT 28.8 sec (22.9-36.1)
[2019-10-06 02:43] LABS: ALT (SGPT) 14 U/L (8-55); AST (SGOT) 23 U/L (5-34); Albumin 4.2 g/dL (3.4-4.8); Alkaline Phosphatase 58 U/L (40-110); Anion Gap 12 mmol/L (10-20); BUN (Urea Nitrogen) 10 mg/dL (8.4-25.7); Bilirubin, Total 0.3 mg/dL (0.2-1.2); Calc. Creatinine Clearance 0 mL/min (70-130); Calcium 8.8 mg/dL (7.8-10.44); Carbon Dioxide 26 mmol/L (23-31); Chloride 98 mmol/L (98-107); Estimated GFR-MDRD 78; Globulin 2.6 g/dL (2.4-3.5); Glucose 98 mg/dL (80-115); Potassium 4.4 mmol/L (3.5-5.1); Protein, Total 6.8 g/dL (5.8-8.1); Sodium 132 mmol/L (136-145)
[2019-10-06] MEDS ORDERED: Dextrose 5% in Water 1,000 ML IV PRN (02:44)
[2019-10-06] MEDS ORDERED: Dextrose 50% Abboject 50 ML SYRINGE SLOW IVP PRN (02:44)
[2019-10-06] MEDS ORDERED: Morphine 2 MG/ML SYRINGE SLOW IVP PRN (02:49)
[2019-10-06] MEDS ORDERED: hydrALAZINE 20 MG/ML VIAL SLOW IVP PRN (02:49)
[2019-10-06] MEDS ORDERED: Morphine 4 MG/ML VIAL SLOW IVP PRN ×2 (02:49→07:33)
[2019-10-06] MEDS ORDERED: Ondansetron PF 4 MG/2 ML Vial IVP PRN (02:49)
[2019-10-06] MEDS ORDERED: Sodium Chloride 0.9% 1,000 ML IV SCH (03:00)
--- NOTE | 2019-10-06 03:30 | HP ---
This is Hang AUREA Monahan dictating a report for Jm Trinh MD. REQUESTING PHYSICIAN: . CONSULTING PHYSICIAN: Zeke Mccann MD. ATTENDING PHYSICIAN: Jm Trinh MD HISTORY OF PRESENT ILLNESS: Mr. English is a 63-year-old male presented to the ED for a left hip pain. The patient reports he was getting off from bed, misstepped and fell, did not lose consciousness or hit his head, did not hit any other part of the body except his left hip was painful after the fall and the patient unable to bear weight. Upon arrival in the ED, the patient is alert and awake. GCS 15. Vital signs stable. Complains of left hip pain. REVIEW OF SYSTEMS: Noncontributory except per HPI. PAST MEDICAL HISTORY: COPD with daily inhaler treatment; hypertension, stable. PAST SURGICAL HISTORY: C-spine surgery. SOCIAL HISTORY: The patient lives at home with family. Drinking every day, few during the day and smokes one pack a day. Denies drug use. ALLERGIES: NAPROXEN. CURRENT MEDICATIONS: 1. Inhaler for COPD. 2. Hypertension medication. PHYSICAL EXAMINATION: GENERAL: Currently, the patient lying in bed with no acute respiratory distress. The patient is alert and awake. GCS 15. VITAL SIGNS: Temperature 98.6, heart rate 80, respiratory rate 20, O2 saturation 98% on room air, blood pressure 130/70. LUNGS: Clear bilaterally. HEART: Regular rate and rhythm. ABDOMEN: Soft, nondistended. EXTREMITIES: Neurovascularly intact x4. Left hip pain and limited range of motion due to pain. NEUROLOGIC: No focal neurology deficits. LABORATORY DATA: Show white count of 12.9, hemoglobin of 12.3. Coagulation is normal. Chemistry; sodium 132, potassium 4.4, creatinine is 0.87. Hip x-ray shows left hip fracture. ASSESSMENT: 1. Status post mechanical fall. 2. Left hip fracture. 3. History of chronic obstructive pulmonary disease. 4. Hypertension. PLAN: The patient will be admitted to telemetry for pain control, IV fluids, n.p.o. now. Dr. Mccann will take the patient to the OR tomorrow for left hip fracture fixation, albuterol inhaler t.i.d. for COPD, alcohol use withdrawal prevention. Dr. Trinh will be notified after the dictation. Job ID: [id number]
[2019-10-06] MEDS: Cyclobenzaprine 10 MG TAB PO PRN (04:34)
[2019-10-06 05:18] VITALS: BMI 20.4
[2019-10-06] MEDS: traMADol HCl 50 MG TAB PO PRN ×2 (06:21→20:02)
[2019-10-06] MEDS: Acetaminophen 500 MG TAB PO SCH ×4 (06:21→23:44)
--- NOTE | 2019-10-06 07:36 | RAD ---
Exam:Left hip 2 views HISTORY: Fall. Pain. COMPARISON: None FINDINGS: Nondisplaced intertrochanteric fracture. IMPRESSION: Nondisplaced intertrochanteric fracture
--- NOTE | 2019-10-06 07:40 | RAD ---
Exam: Chest one view HISTORY:Altered mental status. Hyperglycemia. Hypotension. Comparison: 07/11/2019 FINDINGS: Cardiac silhouette: Normal Aorta: Unremarkable Pulmonary vessels: Normal Costophrenic angles: Clear LUNGS: Hyperinflation. Chronic changes. No consolidation or mass. Pneumothorax: None Osseous abnormalities: Multiple old right rib fractures. IMPRESSION: 1. COPD. No acute cardiopulmonary process.
--- NOTE | 2019-10-06 07:55 | CT ---
PRELIMINARY REPORT/[facility]/EMERGENCY AFTER HOURS PROCEDURE EXAM: CT Pelvis Without Intravenous Contrast. CLINICAL HISTORY: Fall earlier today L thigh pain COMPARISON: None provided. FINDINGS: HIP JOINTS: No dislocation is seen. Moderate left greater than right hip degenerative changes. Lumbos acral degenerative changes. BONES: Diffuse demineralization of the osseous structures. Acute minimally displaced/angulated intert rochanteric fracture of the proximal left femur. SOFT TISSUES: No sizable hematoma in the left hip. Overlying mild subcutaneous stranding/edema. Advan david aortoiliac atherosclerotic calcifications. Normal caliber of the visualized bowel. Moderate fecal retention. Tiny fat-containing inguinal hernias. No sizable intrapelvic fluid collection. Mildly dis tended urinary bladder. IMPRESSION: Acute left femoral intertrochanteric fracture. ELECTRONICALLY SIGNED BY: Kameron Blue MD Oct 06, 2019 2:01:33 AM CDT FINAL REPORT EMERGENT AFTER HOURS CT OF THE PELVIS WITHOUT CONTRAST: FINDINGS/IMPRESSION: I agree with the findings and impression given in the preliminary report per [facility] physici an. There is a left intratrochanteric femur fracture. POS: TEX
[2019-10-06] MEDS ORDERED: Mometasone 200 MCG/Formoterol 5 MCG 120 PUFF INHALER INH SCH (08:00)
[2019-10-06] MEDS ORDERED: Oxazepam 10 MG CAP PO SCH (09:00)
[2019-10-06] MEDS ORDERED: Lisinopril 10 MG TAB PO SCH (09:00)
[2019-10-06] MEDS: Famotidine 20 MG TAB PO SCH ×2 (09:11→20:02)
[2019-10-06] MEDS: Oxazepam 10 MG CAP PO SCH ×3 (09:11→21:15)
[2019-10-06] MEDS: Gabapentin 300 MG CAP PO SCH ×2 (09:12→20:02)
[2019-10-06] MEDS: Lisinopril 10 MG TAB PO SCH (09:12)
[2019-10-06] MEDS: Folic Acid 1 MG TAB PO SCH (09:12)
[2019-10-06] MEDS: Thiamine 100 MG TAB PO SCH (09:15)
[2019-10-06] MEDS: Polyethylene Glycol 3350 17 GM Packet PO SCH (09:16)
[2019-10-06] MEDS: Nicotine 14 MG PATCH TD SCH (09:16)
[2019-10-06] MEDS: Senokot S 8.6-50 MG TAB PO SCH ×2 (09:16→20:02)
[2019-10-06] MEDS: Multivitamin W/ Minerals 1 TAB PO SCH (09:17)
[2019-10-06] MEDS ORDERED: Lidocaine 1% PF 5 ML VIAL ONE (11:47)
[2019-10-06] MEDS ORDERED: Rocuronium Bromide 10 MG/ML (10ML VIAL) ONE (11:47)
[2019-10-06] MEDS ORDERED: PROPOFOL 200 MG/20 ML VIAL ONE (11:47)
[2019-10-06] MEDS ORDERED: CEFAZOLIN 2 GM in Premix Bag 1 BAG IVPB SCH (12:00)
--- NOTE | 2019-10-06 14:14 | CON ---
DATE OF CONSULTATION: 10/06/2019 CHIEF COMPLAINT: Left hip pain. HISTORY OF PRESENT ILLNESS: Mr. English is a 63-year-old male who tripped and fell at home yesterday. He lost his balance and landed on his left side. He had pain and was unable to bear weight. X-rays were obtained once he arrived at the emergency department. These demonstrated an intertrochanteric femur fracture. He has been admitted to the hospital. He has currently received pain control. He is resting comfortably. He has been admitted by the General Surgery Trauma Service. No other injuries. The patient does have COPD and continues to smoke. ALLERGIES: TO NAPROXEN AND HONEY BEE VENOM. SOCIAL HISTORY: The patient smokes cigarettes. He denies drug use. He has occasional alcohol use. He does not use any assistive device for ambulation. FAMILY MEDICAL HISTORY: Noncontributory. REVIEW OF SYSTEMS: Positive for left hip pain. Otherwise, negative 10-point review of systems. PAST MEDICAL HISTORY: COPD, hypertension. PAST SURGICAL HISTORY: Cervical spine surgery. MEDICATIONS: The patient takes an inhaler for COPD as well as a blood pressure medication. IMAGING: X-rays of the hip as well as pelvic CT are reviewed. These demonstrate a nondisplaced intertrochanteric fracture of the femur on the left side. This is acute. PHYSICAL EXAMINATION: VITAL SIGNS: Temperature is 97.7, pulse is 83, respiratory rate is 14, blood pressure is 110/71. GENERAL: The patient is alert and oriented, in no apparent distress. RESPIRATORY: Breathing comfortably. ABDOMEN: Soft, nontender, nondistended. MUSCULOSKELETAL: The patient's left lower extremity has pain with motion. He is slightly shortened. He has intact sensation distally. He is able to flex and extend the foot and ankle. Upper extremities are atraumatic. No skin lacerations. IMPRESSION: Left intertrochanteric femur fracture in a 63-year-old male. PLAN: At this point, the patient will need to go to the operating room for stabilization of his femur. We will plan for open reduction and internal fixation with a dynamic hip screw and sideplate. The patient is aware of risks and benefits. He wants to proceed with surgery. Risks to include infection, nerve or vascular injury, nonunion, malunion, hardware failure, and others. The patient will remain n.p.o. He will have pain control. He will have antibiotic prophylaxis. He will have DVT prophylaxis. Job ID: [id number]
[2019-10-06] MEDS ORDERED: Meperidine HCl/PF 25 MG/ML VIAL SLOW IVP PRN (14:55)
[2019-10-06] MEDS ORDERED: Promethazine HCl 25 MG/ML VIAL IM PRN (14:55)
[2019-10-06] MEDS ORDERED: HYDROmorphone 2 MG/ML VIAL SLOW IVP PRN (14:55)
[2019-10-06] MEDS ORDERED: Promethazine HCl 25 MG/ML VIAL SLOW IVP PRN (14:55)
[2019-10-06] MEDS ORDERED: SUGAMMADEX SODIUM 500 MG/5 ML VIAL ONE (15:09)
--- NOTE | 2019-10-06 15:34 | RAD ---
Exam:Intraprocedure fluoroscopy HISTORY: Left hip fracture. ORIF. COMPARISON: 10/06/2019 FINDINGS: Gamma nail traverses a left intertrochanteric fracture. Near-anatomic alignment Exposure: 35.7 seconds. 4.42 mGy IMPRESSION: Fluoroscopy as above
[2019-10-06] MEDS ORDERED: Promethazine HCl 25 MG/ML VIAL ONE (15:36)
--- NOTE | 2019-10-06 16:40 | PRG ---
DATE OF SERVICE: 10/06/2019 SUBJECTIVE: The patient was seen this morning during rounds. He was sitting up in bed with no signs of acute distress. He is pending the OR with Orthopedic Surgery today for left intertrochanteric femur fracture. He reported he was having pain earlier, but nurse had just given him some IV morphine. OBJECTIVE: VITAL SIGNS: Temperature 97.7, pulse 83, respirations 14, oxygen saturation 94% on room air, blood pressure 111/71. GENERAL: Well-appearing middle-aged male, sitting up in bed with no signs of acute distress. PULMONARY: Equal chest rise and fall. Clear breath sounds bilaterally. No signs of acute respiratory distress. CARDIAC: Regular rate and rhythm. GI: Abdomen is soft, nontender, nondistended. EXTREMITIES: 2+ pulses in all extremities. Gross motor and sensation are intact. No significant swelling noted. Left lower extremity is slightly shortened when compared to the right. NEUROLOGIC: GCS is 15. LABORATORY FINDINGS: White count 12.9, hemoglobin 12.3, hematocrit 35.2, platelets 288. Sodium 132, potassium 4.4, chloride 98, BUN 10, creatinine 0.97, glucose 98. Total bilirubin 0.3, AST 23, ALT 14, alkaline phosphatase 58. DIAGNOSTIC FINDINGS: There are no new diagnostic findings to report. ASSESSMENT: 1. Status post mechanical fall at home. 2. Left intertrochanteric femur fracture. 3. History of chronic obstructive pulmonary disease, hypertension, and daily alcohol use. PLAN: Continue n.p.o. with normal saline at 120 an hour for a total of 1 L. Restart the patient's home Dulera and lisinopril with hold parameters. The patient to go to the OR today with Orthopedic Surgery for fixation of the left intertrochanteric femur fracture. Postoperatively, he worked with Physical and Occupational Therapy. He does have family support. He may be able to go home. We will have PT evaluate him and make recommendations. Postoperatively, we will give the patient a regular diet. Job ID: [id number]
[2019-10-06 17:29] LABS: SARS-CoV-2 MS2 Positive; SARS-CoV-2 N Gene Negative; SARS-CoV-2 S Gene Negative; SARS-CoV-2 orf1ab Negative
--- NOTE | 2019-10-06 19:39 | OP ---
DATE OF PROCEDURE: 10/06/2019 OPERATION: Left femur intertrochanteric fracture open reduction and internal fixation with dynamic hip screw and sideplate. PREOPERATIVE DIAGNOSIS: Left femur intertrochanteric fracture. POSTOPERATIVE DIAGNOSIS: Left femur intertrochanteric fracture. COMPLICATIONS: None. ESTIMATED BLOOD LOSS: Minimal. ANESTHESIA: General. IMPLANT: Synthes 3-hole 135 degree dynamic hip screw and sideplate. INDICATIONS: Mr. English is a 63-year-old male, who has fallen and fractured the left femur. He was indicated for stabilization of the fracture. The goal is to promote early mobilization and prevent complications of prolonged bedrest. Risks have been reviewed in detail. He has elected to proceed with the operation. DESCRIPTION OF PROCEDURE: Mr. English was identified in the preoperative holding area. His correct extremity was marked. He was carried to the operating room. He was positioned supine. General anesthesia was induced. A multidisciplinary time-out was performed. The left lower extremity was prepped and draped in a sterile fashion. We began the procedure with making an incision over the lateral femur. We dissected down through the subcutaneous tissues to the fascia, which was split. We then split the posterior portion of the vastus lateralis to bring this down to the femoral bone. We applied a 135-degree guide. This was positioned appropriately. We placed our guidewire in the centered position of the femoral head. At this point, we overdrilled the guidewire. We then measured in appropriate lengths. We placed our central screw. We then impacted our 3-hole sideplate. An x-ray was taken confirming this. We then placed three screws in the side plate. We took final images in orthogonal planes. We then thoroughly irrigated with copious lavage and closed the layers appropriately. A sterile dressing was applied. The patient was taken to the recovery room in good condition. Job ID: [id number]
[2019-10-06] MEDS: Mometasone 200 MCG/Formoterol 5 MCG 120 PUFF INHALER INH SCH (19:43)
[2019-10-06] MEDS: CEFAZOLIN 2 GM in Premix Bag 1 BAG IVPB SCH (21:16)
[2019-10-07] MEDS: Acetaminophen 500 MG TAB PO SCH ×3 (05:24→17:59)
[2019-10-07 05:26] LABS: #Basophils 0.1 thou/uL (0.0-0.2); #Eosinphils 0.1 thou/uL (0.0-0.7); #Lymphocytes 0.8 thou/uL (1.20-3.40); #Monocytes 0.7 thou/uL (0.11-0.59); #Neutrophils 7.1 thou/uL (1.40-6.50); %Basophils 0.8 % (0.0-1.0); %Eosinophils 0.8 % (0.0-10.0); %Lymphocytes 9.2 % (21.0-51.0); %Monocytes 8.1 % (0.0-10.0); %Neutrophils 81.1 % (42.0-75.0); Hemoglobin 10.4 g/dL (14.0-18.0); Mean Corpuscular HGB CONC 32.9 g/dL (32.0-36.0); Mean Corpuscular Hemoglobin 32.6 pg (27.0-31.0); Mean Corpuscular Volume 99.1 fL (78.0-98.0); Mean Platelet Volume 6.2 fL (7.4-10.4); Platelet Count 241 thou/uL (130-400); RBC Distribution Width 11.8 % (11.5-14.5); Red Blood Cell (RBC) Count 3.19 mill/uL (4.70-6.10); White Blood Cell (WBC) Count 8.7 thou/uL (4.8-10.8)
[2019-10-07] MEDS: CEFAZOLIN 2 GM in Premix Bag 1 BAG IVPB SCH (05:27)
[2019-10-07 05:51] LABS: Anion Gap 8 mmol/L (10-20); BUN (Urea Nitrogen) 7 mg/dL (8.4-25.7); Calc. Creatinine Clearance 83 mL/min (70-130); Calcium 8.2 mg/dL (7.8-10.44); Carbon Dioxide 29 mmol/L (23-31); Chloride 96 mmol/L (98-107); Estimated GFR-MDRD Greater than 90; Glucose 102 mg/dL (80-115); Magnesium 1.6 mg/dL (1.6-2.6); Phosphorus 3.5 mg/dL (2.3-4.7); Potassium 4.3 mmol/L (3.5-5.1); Sodium 129 mmol/L (136-145)
[2019-10-07] MEDS ORDERED: Magnesium 2 GM/50 ML 2 GM in Premix Bag 1 BAG IVPB SCH (08:00)
[2019-10-07] MEDS: Thiamine 100 MG TAB PO SCH (08:06)
[2019-10-07] MEDS: Lisinopril 10 MG TAB PO SCH (08:06)
[2019-10-07] MEDS: Multivitamin W/ Minerals 1 TAB PO SCH (08:06)
[2019-10-07] MEDS: Oxazepam 10 MG CAP PO SCH ×3 (08:07→21:22)
[2019-10-07] MEDS: Aspirin 81 mg Enteric Coated Tablet PO SCH ×2 (08:07→21:22)
[2019-10-07] MEDS: Gabapentin 300 MG CAP PO SCH ×2 (08:07→21:23)
[2019-10-07] MEDS: Senokot S 8.6-50 MG TAB PO SCH ×3 (08:07→21:22)
[2019-10-07] MEDS: Folic Acid 1 MG TAB PO SCH (08:07)
[2019-10-07] MEDS: Polyethylene Glycol 3350 17 GM Packet PO SCH ×2 (08:07→10:48)
[2019-10-07] MEDS: Famotidine 20 MG TAB PO SCH ×2 (08:07→21:22)
[2019-10-07] MEDS: Mometasone 200 MCG/Formoterol 5 MCG 120 PUFF INHALER INH SCH ×2 (08:09→18:34)
[2019-10-07] MEDS: Nicotine 14 MG PATCH TD SCH (08:09)
[2019-10-07] MEDS ORDERED: Oxazepam 10 MG CAP PO SCH ×3 (09:15→15:00)
[2019-10-07] MEDS: traMADol HCl 50 MG TAB PO PRN ×3 (10:33→22:52)
--- NOTE | 2019-10-07 11:12 | PRG ---
DATE OF SERVICE: 10/07/2019 SUBJECTIVE: The patient was seen this morning during rounds. He was sitting up in bed, reported no signs of acute distress. The patient intermittently mildly tachycardic with heart rate in the 100s. He also appears to be very mildly shaking. Upon my evaluation, he does drink several beers every day. He does report he has had alcohol withdrawal symptoms before. He does not report feeling anxious or any other symptoms that he has previously felt. He is postoperative day 1 after fixation of his left intertrochanteric femur fracture. He has not worked with Physical Therapy yet. He is on a regular diet. OBJECTIVE: VITAL SIGNS: Temperature 99.3, pulse 109, respirations 18, oxygen saturation 91% on room air, blood pressure 116/68. GENERAL: A well-appearing male, sitting up in bed with no signs of acute distress. PULMONARY: Equal chest rise and fall. No signs of acute respiratory distress. CARDIAC: Regular rate and rhythm. GI: Abdomen is soft, nontender, nondistended. EXTREMITIES: 2+ pulses in all extremities. Gross motor and sensation intact. No significant swelling noted. NEURO: GCS is 15. ASSESSMENT: 1. Status post mechanical fall from standing while intoxicated. 2. Left intertrochanteric femur fracture, status post repair. 3. Chronic hyponatremia, slightly worse. 4. Alcohol withdrawal. 5. History of chronic obstructive pulmonary disease, hypertension, and daily alcohol use. PLAN: Continue current regular diet. Add 1 L free water restrictions. Replace sodium phos and magnesium today via IV route. Start aspirin for DVT prophylaxis. Increase Serax from 10 mg t.i.d. to 20 mg q.8 hours. We will re-evaluate the patient after Physical Therapy has had a chance to work with him. He may be able to go home as early as tomorrow. He is very motivated, reports he would prefer not to go to rehab facility. This patient will be discussed with Dr. Loaiza after this dictation. Job ID: [id number]
[2019-10-07] MEDS: cloNIDine 0.1 MG TAB PO SCH ×2 (15:58→21:21)
[2019-10-07] MEDS: Cyclobenzaprine 10 MG TAB PO PRN (22:52)
[2019-10-08] MEDS: Acetaminophen 500 MG TAB PO SCH ×5 (00:48→23:54)
[2019-10-08] MEDS: cloNIDine 0.1 MG TAB PO SCH ×4 (02:19→22:21)
--- NOTE | 2019-10-08 04:03 | PRG ---
DATE OF SERVICE: SUBJECTIVE: Mr. English remains in surgical floor. The patient was seen on round this evening. The patient reports he experienced some episodes of confusion and did not understand why he was in the hospital and had some level of hallucination of his dog next to him. Other than that, the patient is alert, awake, oriented x3 at the moment. He tolerated his regular diet. He is working with physical therapy. OBJECTIVE: GENERAL: Currently, the patient is lying in bed comfortable with no acute respiratory distress. GCS 15. The patient is alert, awake, oriented x3. VITAL SIGNS: Stable. LUNGS: Clear bilaterally. HEART: Regular rate and rhythm. ABDOMEN: Soft and nondistended. EXTREMITIES: Neurovascularly intact x4. Postop dressing clean, dry, intact. NEUROLOGIC: No focal neurology deficits. ASSESSMENT: 1. Status post mechanical fall. 2. Left intertrochanteric fracture, status post repair. 3. Alcohol abuse. 4. History of chronic obstructive pulmonary disease, hypertension. PLAN: Continue supportive care. Continue pain control. Continue free water restriction. Continue DVT prophylaxis. Continue working with physical therapy and occupational therapy. Anticipate discharge to rehabilitation facility. Job ID: [id number]
[2019-10-08 06:10] LABS: #Eosinphils 0.1 thou/uL (0.0-0.7); #Lymphocytes 1.1 thou/uL (1.20-3.40); #Monocytes 0.8 thou/uL (0.11-0.59); #Neutrophils 6.2 thou/uL (1.40-6.50); %Basophils 0.3 % (0.0-1.0); %Eosinophils 1.4 % (0.0-10.0); %Lymphocytes 13.5 % (21.0-51.0); %Monocytes 9.4 % (0.0-10.0); %Neutrophils 75.4 % (42.0-75.0); Hemoglobin 10.2 g/dL (14.0-18.0); Mean Corpuscular HGB CONC 34.1 g/dL (32.0-36.0); Mean Corpuscular Hemoglobin 33.7 pg (27.0-31.0); Mean Platelet Volume 6.6 fL (7.4-10.4); Platelet Count 253 thou/uL (130-400); RBC Distribution Width 11.9 % (11.5-14.5); Red Blood Cell (RBC) Count 3.03 mill/uL (4.70-6.10); White Blood Cell (WBC) Count 8.2 thou/uL (4.8-10.8)
[2019-10-08] MEDS: Mometasone 200 MCG/Formoterol 5 MCG 120 PUFF INHALER INH SCH ×2 (06:19→18:30)
[2019-10-08 06:30] LABS: Anion Gap 10 mmol/L (10-20); BUN (Urea Nitrogen) 6 mg/dL (8.4-25.7); Calc. Creatinine Clearance 93 mL/min (70-130); Calcium 8.6 mg/dL (7.8-10.44); Carbon Dioxide 31 mmol/L (23-31); Chloride 93 mmol/L (98-107); Estimated GFR-MDRD Greater than 90; Glucose 105 mg/dL (80-115); Magnesium 1.9 mg/dL (1.6-2.6); Sodium 130 mmol/L (136-145)
[2019-10-08] MEDS ORDERED: PHOS-NAK 1 PKT PACK PO SCH (08:00)
[2019-10-08] MEDS ORDERED: Magnesium 2 GM/50 ML 2 GM in Premix Bag 1 BAG IVPB SCH (08:00)
[2019-10-08] MEDS: Aspirin 81 mg Enteric Coated Tablet PO SCH ×2 (09:07→22:16)
[2019-10-08] MEDS: Nicotine 14 MG PATCH TD SCH (09:08)
[2019-10-08] MEDS: Famotidine 20 MG TAB PO SCH ×2 (09:08→22:16)
[2019-10-08] MEDS: Senokot S 8.6-50 MG TAB PO SCH ×2 (09:08→22:16)
[2019-10-08] MEDS: Polyethylene Glycol 3350 17 GM Packet PO SCH ×2 (09:08→09:14)
[2019-10-08] MEDS: Folic Acid 1 MG TAB PO SCH (09:08)
[2019-10-08] MEDS: Thiamine 100 MG TAB PO SCH (09:09)
[2019-10-08] MEDS: Gabapentin 300 MG CAP PO SCH ×2 (09:09→22:16)
[2019-10-08] MEDS: Multivitamin W/ Minerals 1 TAB PO SCH (09:09)
[2019-10-08] MEDS: traMADol HCl 50 MG TAB PO PRN ×2 (09:10→22:17)
[2019-10-08] MEDS: Lisinopril 10 MG TAB PO SCH (09:12)
[2019-10-08] MEDS ORDERED: Oxazepam 10 MG CAP PO SCH (09:30)
[2019-10-08] MEDS: Oxazepam 10 MG CAP PO SCH ×4 (09:30→22:17)
--- NOTE | 2019-10-08 12:33 | PRG ---
DATE OF SERVICE: 10/08/2019 SUBJECTIVE: The patient was seen this morning during rounds. He was sitting up in bed with no signs of acute distress. He reported his pain was well controlled. He was able to work with PT yesterday, but has not ambulated in the hallway yet. He does not want to go to rehab and is very motivated to go home. We will have PT continue to work with him today and consider discharge tomorrow. Previous alcohol withdrawal symptoms that were better controlled, now on increased Serax and clonidine. The patient denies feeling anxious or having hallucinations. His tachycardia has now resolved, and he is not hypertensive. Alert and oriented x3. OBJECTIVE: VITAL SIGNS: Temperature 98.1, pulse 98, respirations 12, oxygen saturation 97% on room air, and blood pressure 105/68. GENERAL: Well-appearing elderly male, sitting up in bed with no signs of acute distress. PULMONARY: Equal chest rise and fall. Clear breath sounds bilaterally. No signs of acute respiratory distress. CARDIAC: Regular rate and rhythm. GI: Abdomen is soft, nontender, nondistended. EXTREMITIES: 2+ pulses in all extremities. No significant swelling noted. Neuromuscular intact. NEUROLOGIC: GCS 15. LABORATORY FINDINGS: White count 8.2, hemoglobin 10.2, hematocrit 30.0, and platelets 253. Sodium 130, potassium 4.0, chloride 93, bicarb 31, BUN 6, creatinine 0.71, glucose 105, phosphorus 3.0, and magnesium 1.9. DIAGNOSTIC FINDINGS: There are no new diagnostic findings to report. ASSESSMENT: 1. Status post mechanical fall from standing. 2. Left intertrochanteric femur fracture, status post repair. 3. Acute alcohol withdrawal, resolved. 4. Chronic hyponatremia, improving. 5. History of chronic obstructive pulmonary disease, hypertension, alcohol dependence. 6. Acute hypomagnesemia and hypophosphatemia. PLAN: Continue current diet and pain regimen. Continue 1 L free water restriction. Replace phosphorus and magnesium. Continue Serax and clonidine for alcohol withdrawal. Continue physical and occupational therapy. We will re-evaluate the patient over the next 24 to 48 hours if he may be able to progress and go home; if not, we will reopen up to conversation for rehab. The patient is very hesitant at this time. Job ID: [id number]
--- NOTE | 2019-10-09 01:29 | PDOC.BPN ---
- Brief Progress Note DATE OF SERVICE: 10/08/2019 SUBJECTIVE: Mr. English remains in surgical floor. The patient was seen on round this evening. The patient reports his confusion improved, He tolerated his regular diet. He is working with physical therapy. OBJECTIVE: GENERAL: Currently, the patient is lying in bed comfortable with no acute respiratory distress. GCS 15. The patient is alert, awake, oriented x3. VITAL SIGNS: Stable. LUNGS: Clear bilaterally. HEART: Regular rate and rhythm. ABDOMEN: Soft and nondistended. EXTREMITIES: Neurovascularly intact x4. Postop dressing clean, dry, intact. NEUROLOGIC: No focal neurology deficits. ASSESSMENT: 1. Status post mechanical fall. 2. Left intertrochanteric fracture, status post repair. 3. Alcohol abuse. 4. History of chronic obstructive pulmonary disease, hypertension. PLAN: Continue supportive care. Continue pain control. Continue free water restriction. Continue DVT prophylaxis. Continue working with physical therapy and occupational therapy. Anticipate discharge to rehabilitation facility.
[2019-10-09] MEDS: cloNIDine 0.1 MG TAB PO SCH ×4 (02:04→20:48)
[2019-10-09] MEDS: Acetaminophen 500 MG TAB PO SCH ×4 (05:20→23:54)
[2019-10-09] MEDS: Mometasone 200 MCG/Formoterol 5 MCG 120 PUFF INHALER INH SCH ×2 (07:11→18:44)
[2019-10-09] MEDS: Lisinopril 10 MG TAB PO SCH (08:40)
[2019-10-09] MEDS: Senokot S 8.6-50 MG TAB PO SCH ×2 (09:54→20:49)
[2019-10-09] MEDS: Multivitamin W/ Minerals 1 TAB PO SCH (09:54)
[2019-10-09] MEDS: Aspirin 81 mg Enteric Coated Tablet PO SCH ×2 (09:54→20:49)
[2019-10-09] MEDS: Gabapentin 300 MG CAP PO SCH ×3 (09:54→20:49)
[2019-10-09] MEDS: Folic Acid 1 MG TAB PO SCH (09:54)
[2019-10-09] MEDS: Nicotine 14 MG PATCH TD SCH (09:55)
[2019-10-09] MEDS: Thiamine 100 MG TAB PO SCH (09:55)
[2019-10-09] MEDS: Famotidine 20 MG TAB PO SCH ×2 (09:55→20:49)
[2019-10-09] MEDS: Polyethylene Glycol 3350 17 GM Packet PO SCH (09:55)
[2019-10-09] MEDS: Oxazepam 10 MG CAP PO SCH ×4 (09:55→20:49)
--- NOTE | 2019-10-09 10:50 | RAD ---
Exam:2 views left hip HISTORY: Internal fixation. Fracture. COMPARISON: 10/06/2019 FINDINGS: Findings compatible with left hip internal fixation. Near anatomic alignment. IMPRESSION: Findings compatible with left hip internal fixation
--- NOTE | 2019-10-09 10:51 | RAD ---
Exam: One view pelvis HISTORY: ORIF left hip fracture. FINDINGS: Postsurgical changes compatible with internal fixation hardware traversing a left intertroc hanteric fracture. Fracture lucency is identified. Expected postoperative changes in the soft tissues Visualized bony pelvis is intact. IMPRESSION: Expected postoperative changes.
--- NOTE | 2019-10-09 12:53 | PRG ---
DATE OF SERVICE: 10/09/2019 SUBJECTIVE: The patient was seen this morning during rounds. He was walking with Physical Therapy. The patient reported left-sided hip pain was much worse today. Occupational therapist was a little concerned and asked us to investigate. We did complete x-rays of the left hip and pelvis, and I spoke to Dr. Ortiz, who evaluated the x-rays. OBJECTIVE: VITAL SIGNS: Temperature 98.7, pulse 95, respirations 16, oxygen saturation 96% on room air, blood pressure 121/77. GENERAL: Well-appearing elderly male, sitting up at the edge of the bed with no signs of acute distress. PULMONARY: Equal chest rise and fall. Clear breath sounds bilaterally. No signs of acute respiratory distress. CARDIAC: Regular rate and rhythm. GI: Abdomen is soft, nontender, nondistended. EXTREMITIES: 2+ pulses in all extremities. Gross motor and sensation intact. No significant swelling noted. NEURO: GCS is 15. LABORATORY FINDINGS: There are no new laboratory findings to discuss. DIAGNOSTIC FINDINGS: X-ray of the pelvis demonstrates expected postoperative changes. X-ray of the left hip demonstrates findings compatible with left hip internal fixation. ASSESSMENT: 1. Status post mechanical fall from standing. 2. Left intertrochanteric femur fracture, status post repair. 3. History of chronic obstructive pulmonary disease, hypertension, and daily alcohol abuse. 4. Left-sided postoperative pain. PLAN: Continue current diet. Increase gabapentin to 300 mg t.i.d. X-rays completed demonstrate no concerning changes. Dr. Ortiz evaluated the x-rays and reported that he has no concerns at this time. Continue work with Physical and Occupational Therapy. The patient would prefer to go home, but Physical Therapy has recommended rehab. We will talk with him again tomorrow and possibly start the acute rehab process. He is open to re-discussing it tomorrow. Continue Serax q.i.d. for alcohol withdrawal symptoms. Job ID: [id number]
[2019-10-09] MEDS: traMADol HCl 50 MG TAB PO SCH (20:56)
--- NOTE | 2019-10-10 00:23 | PDOC.BPN ---
- Brief Progress Note DATE OF SERVICE: 10/09/2019 SUBJECTIVE: Mr. English remains in surgical floor. The patient was seen on round this evening. The patient reports he has L hip pain elevated with movemen 11/03 . He tolerated his regular diet. He is working with physical therapy. OBJECTIVE: GENERAL: Currently, the patient is lying in bed comfortable with no acute respiratory distress. GCS 15. The patient is alert, awake, oriented x3. VITAL SIGNS: Stable. LUNGS: Clear bilaterally. HEART: Regular rate and rhythm. ABDOMEN: Soft and nondistended. EXTREMITIES: Neurovascularly intact x4. Postop dressing clean, dry, intact. NEUROLOGIC: No focal neurology deficits. ASSESSMENT: 1. Status post mechanical fall. 2. Left intertrochanteric fracture, status post repair. 3. Alcohol abuse. Hyponatrimia 4. History of chronic obstructive pulmonary disease, hypertension. PLAN: Continue supportive care. Change tramadol 100 PRN q6h to 50 mg CAROL q6h . Continue free water restriction. Continue DVT prophylaxis. Continue working with physical therapy and occupational therapy. Anticipate discharge to rehabilitation facility.
[2019-10-10] MEDS: cloNIDine 0.1 MG TAB PO SCH ×4 (03:18→20:55)
[2019-10-10] MEDS: traMADol HCl 50 MG TAB PO SCH ×4 (03:18→20:53)
[2019-10-10] MEDS: Acetaminophen 500 MG TAB PO SCH ×3 (05:20→17:55)
[2019-10-10] MEDS: Mometasone 200 MCG/Formoterol 5 MCG 120 PUFF INHALER INH SCH ×2 (07:02→20:00)
[2019-10-10] MEDS: Folic Acid 1 MG TAB PO SCH (08:39)
[2019-10-10] MEDS: Thiamine 100 MG TAB PO SCH (08:39)
[2019-10-10] MEDS: Aspirin 81 mg Enteric Coated Tablet PO SCH ×2 (08:39→20:52)
[2019-10-10] MEDS: Famotidine 20 MG TAB PO SCH ×2 (08:39→20:52)
[2019-10-10] MEDS: Nicotine 14 MG PATCH TD SCH (08:39)
[2019-10-10] MEDS: Lisinopril 10 MG TAB PO SCH (08:39)
[2019-10-10] MEDS: Gabapentin 300 MG CAP PO SCH ×3 (08:39→20:52)
[2019-10-10] MEDS: Multivitamin W/ Minerals 1 TAB PO SCH (08:39)
[2019-10-10] MEDS: Polyethylene Glycol 3350 17 GM Packet PO SCH (08:40)
[2019-10-10] MEDS: Senokot S 8.6-50 MG TAB PO SCH ×2 (08:40→20:53)
[2019-10-10] MEDS: Oxazepam 10 MG CAP PO SCH ×4 (11:56→20:53)
--- NOTE | 2019-10-10 16:23 | PRG ---
DATE OF SERVICE: 10/10/2019 SUBJECTIVE: Mr. English is a 63-year-old male, hospital day #4, postop day #3, status post left intertrochanteric hip fracture, status post repair, history of alcoholism and COPD, who is ambulatory, working with PT, walking around the room. He states he is doing somewhat better. He has remained stable. No events overnight. OBJECTIVE: VITAL SIGNS: Temperature is 97.6, blood pressure 114/68, heart rate is 88, respiratory rate is 18, saturating 99% on room air. GENERAL: This is a 63-year-old male, sitting up on the edge of the bed, in no acute distress. He was ambulatory upon arrival. HEENT: Normocephalic and atraumatic. Trachea is midline. No JVD. RESPIRATORY: Equal rise and fall. No respiratory distress. CARDIOVASCULAR: Regular rhythm. Strong pulses. PELVIS: Stable. MUSCULOSKELETAL: Moves well and is ambulatory. No marixa edema. NEUROLOGIC: Alert and oriented to person, place, time, and event. PSYCHIATRIC: Normal mood and affect. LABORATORY DATA: There is no laboratory data from today. ASSESSMENT: 1. Status post mechanical fall. 2. Left intertrochanteric femur fracture, status post repair. 3. History of chronic obstructive pulmonary disease, hypertension, and alcohol abuse. 4. Left-sided postoperative pain. PLAN: 1. We will continue diet. 2. We had a long discussion with the patient and the patient's at bedside with reference to rehab screening. He is somewhat resistant to this. However, we would like him to go for a couple of days and try to get stronger to safely be able to complete his ADLs. The patient and his were going to consider the same. Continue pain control. 3. Awaiting for rehab approval in the interim. 4. Encourage smoking cessation. 5. Start lactulose to facilitate bowel movements. This patient was seen by Dr. Oz Loaiza. Plan can be updated as needed. Job ID: [id number]
[2019-10-11] MEDS: Acetaminophen 500 MG TAB PO SCH ×4 (00:09→17:22)
--- NOTE | 2019-10-11 01:41 | PDOC.BPN ---
- Brief Progress Note DATE OF SERVICE: 10/10/2019 SUBJECTIVE: Mr. English remains in surgical floor. The patient was seen on round this evening. The patient reports his hip pain decrease to 2/10 now He tolerated his regular diet. He is working with physical therapy. OBJECTIVE: GENERAL: Currently, the patient is lying in bed comfortable with no acute respiratory distress. GCS 15. The patient is alert, awake, oriented x3. VITAL SIGNS: Stable. LUNGS: Clear bilaterally. HEART: Regular rate and rhythm. ABDOMEN: Soft and nondistended. EXTREMITIES: Neurovascularly intact x4. Postop dressing clean, dry, intact. NEUROLOGIC: No focal neurology deficits. ASSESSMENT: 1. Status post mechanical fall. 2. Left intertrochanteric fracture, status post repair. 3. Alcohol abuse. Hyponatrimia 4. History of chronic obstructive pulmonary disease, hypertension. PLAN: Continue supportive care. Continue free water restriction. Continue DVT prophylaxis. Continue working with physical therapy and occupational therapy. Anticipate discharge to rehabilitation facility.
[2019-10-11] MEDS: cloNIDine 0.1 MG TAB PO SCH ×4 (03:48→22:02)
[2019-10-11] MEDS: traMADol HCl 50 MG TAB PO SCH ×4 (03:51→22:01)
[2019-10-11] MEDS: traMADol HCl 50 MG TAB PO PRN ×2 (03:51→13:35)
[2019-10-11] MEDS: Cyclobenzaprine 10 MG TAB PO PRN (03:51)
[2019-10-11] MEDS: Mometasone 200 MCG/Formoterol 5 MCG 120 PUFF INHALER INH SCH ×2 (07:49→19:59)
[2019-10-11] MEDS: Gabapentin 300 MG CAP PO SCH ×3 (09:29→22:01)
[2019-10-11] MEDS: Multivitamin W/ Minerals 1 TAB PO SCH (09:29)
[2019-10-11] MEDS: Thiamine 100 MG TAB PO SCH (09:30)
[2019-10-11] MEDS: Nicotine 14 MG PATCH TD SCH (09:30)
[2019-10-11] MEDS: Folic Acid 1 MG TAB PO SCH (09:30)
[2019-10-11] MEDS: Aspirin 81 mg Enteric Coated Tablet PO SCH ×2 (09:30→22:01)
[2019-10-11] MEDS: Lisinopril 10 MG TAB PO SCH (09:31)
[2019-10-11] MEDS: Senokot S 8.6-50 MG TAB PO SCH ×3 (09:32→22:04)
[2019-10-11] MEDS: Polyethylene Glycol 3350 17 GM Packet PO SCH (09:32)
[2019-10-11] MEDS: Famotidine 20 MG TAB PO SCH ×2 (09:34→22:01)
[2019-10-11] MEDS: Oxazepam 10 MG CAP PO SCH ×4 (09:41→22:01)
--- NOTE | 2019-10-11 17:16 | PRG ---
DATE OF SERVICE: 10/11/2019 SUBJECTIVE: The patient was evaluated during morning rounds. He was sitting up in his bed after finishing physical therapy. He is on hospital day 4, postoperative day 3, status post left intertrochanteric hip fracture, status post repair. He has a history of alcoholism and COPD. He continues to work with PT and is making progress, but has not yet met any of his goals. He reports that he is doing better today. He continues to tolerate his diet and urinate appropriately. He denies having a bowel movement yet. Lactulose was started yesterday and has not produced a bowel movement at this time. Patient refused lactulose this morning. Discussed the importance of continuing his lactulose and his bowel regimen to help with bowel movements. The patient agreeable with plan of care. OBJECTIVE: VITAL SIGNS: Temperature 97.7 Fahrenheit, pulse 82, respiratory rate 16, 97% on room air, and blood pressure 119/77. GENERAL: Elderly appearing male, sitting on the edge of the bed, in no acute distress. He was ambulatory upon arrival after working with Physical Therapy. HEENT: Normocephalic and atraumatic. Midline trachea. RESPIRATORY: Equal rise and fall. Clear to auscultation bilaterally. No acute distress. CARDIOVASCULAR: Regular rate and rhythm. No murmurs appreciated. MUSCULOSKELETAL: The patient moving well and ambulatory at this time. No marixa edema is appreciated. Bandaging in place. NEUROLOGIC: A and O x4. PSYCHIATRIC: Normal mood and affect. No signs of alcohol withdrawal at this time. LABORATORY DATA: There is no new laboratory data to report. DIAGNOSTIC IMAGING: There are no new diagnostic images to report. ASSESSMENT: 1. Status post mechanical fall. 2. Left intertrochanteric femur fracture, status post repair. 3. History of chronic obstructive pulmonary disease, hypertension, and alcohol abuse. 4. Left-sided postoperative pain. 5. Constipation. PLAN: We will continue the patient's diet at this time. Encouraging the patient to take his lactulose to help encourage a bowel movement. We will continue the Serax to prevent any alcohol withdrawal. The patient continued to discuss today that he has decided to pursue rehab at this time and is currently awaiting approval for the rehab. Patient will continue to work with PT while in the hospital to gain strength. We will continue to encourage smoking cessation. Blood pressure is stable at this time and we will continue to monitor. We will continue to monitor respiratory function with a history of COPD. The patient was evaluated and his case was discussed with Dr. Loaiza during morning rounds and he was agreeable with the plan of care. Job ID: [id number] MTDD
[2019-10-12] MEDS: Acetaminophen 500 MG TAB PO SCH ×5 (00:22→23:31)
--- NOTE | 2019-10-12 02:05 | PRG ---
DATE OF SERVICE: 10/11/2019 SUBJECTIVE: The patient remains on the surgical floor, awake, alert, no distress. The patient is hospital day #4, postop day #3, status post left intertrochanteric hip fracture, status post repair. The patient reports some increased pain earlier, which has improved with his pain medications. The patient continues to tolerate his diet and voices no complaints or concerns. OBJECTIVE: VITAL SIGNS: Stable, afebrile. RESPIRATORY: Equal chest rise and fall. Bilateral breath sounds clear. EXTREMITIES: Neurovascularly intact x4. ASSESSMENT: 1. Status post mechanical fall. 2. Left intertrochanteric femur fracture, status post repair. 3. History of chronic obstructive pulmonary disease, hypertension, and alcohol abuse. PLAN: Continue supportive care and pain regimen. Continue physical and occupational therapy. The patient is pending placement to rehab. The patient is ready for discharge at this time. Job ID: [id number]
[2019-10-12] MEDS: traMADol HCl 50 MG TAB PO SCH ×4 (03:35→20:38)
[2019-10-12] MEDS: cloNIDine 0.1 MG TAB PO SCH ×4 (03:38→20:42)
[2019-10-12] MEDS: Mometasone 200 MCG/Formoterol 5 MCG 120 PUFF INHALER INH SCH ×2 (07:24→20:55)
[2019-10-12] MEDS: Nicotine 14 MG PATCH TD SCH (09:01)
[2019-10-12] MEDS: Folic Acid 1 MG TAB PO SCH (09:02)
[2019-10-12] MEDS: Lisinopril 10 MG TAB PO SCH (09:03)
[2019-10-12] MEDS: Thiamine 100 MG TAB PO SCH (09:03)
[2019-10-12] MEDS: Aspirin 81 mg Enteric Coated Tablet PO SCH ×2 (09:04→20:38)
[2019-10-12] MEDS: Gabapentin 300 MG CAP PO SCH ×3 (09:04→20:38)
[2019-10-12] MEDS: Multivitamin W/ Minerals 1 TAB PO SCH (09:05)
[2019-10-12] MEDS: Oxazepam 10 MG CAP PO SCH ×4 (09:05→20:38)
[2019-10-12] MEDS: Famotidine 20 MG TAB PO SCH (10:05)
[2019-10-12] MEDS: Polyethylene Glycol 3350 17 GM Packet PO SCH (10:06)
[2019-10-12] MEDS: Senokot S 8.6-50 MG TAB PO SCH ×2 (10:06→20:43)
--- NOTE | 2019-10-12 18:23 | PRG ---
DATE OF SERVICE: 10/12/2019 SUBJECTIVE: The patient was seen this morning during rounds. He was sitting up in bed with no signs of acute distress. He reported pain is well controlled and is pending placement in acute rehab facility. Tolerating diet. The patient has a bowel movement about every 7 to 10 days. Has not had one yet and is refusing bowel regimen. We did discuss this with him, again, and he reports he would continue to try to read and have a bowel movement on his own. OBJECTIVE: VITAL SIGNS: Temperature 97.6, pulse 81, respirations 16, oxygen saturation 100% on room air, blood pressure 135/84. GENERAL: Well appearing elderly male, sitting up in bed with no signs of acute distress. PULMONARY: Equal chest rise and fall. Clear breath sounds bilaterally. No signs of acute respiratory distress. CARDIAC: Regular rate and rhythm. GI: Abdomen is soft, nontender, nondistended. EXTREMITIES: 2+ pulses in all extremities. No significant swelling noted. NEURO: GCS is 15. ASSESSMENT: 1. Status post mechanical fall at home. 2. Left intertrochanteric femur fracture, status post repair. 3. History of chronic obstructive pulmonary disease, hypertension, and daily alcohol abuse. PLAN: Continue current diet and pain regimen. Continue physical and occupational therapy. Continue 1 L free water restriction pending bowel movement. The patient is ready for discharge at this time pending rehab placement. The patient was seen and evaluated by Dr. Loaiza and myself this morning during rounds. Job ID: [id number]
[2019-10-13] MEDS: cloNIDine 0.1 MG TAB PO SCH ×4 (03:01→20:07)
[2019-10-13] MEDS: traMADol HCl 50 MG TAB PO SCH ×4 (03:03→20:09)
[2019-10-13] MEDS: Mometasone 200 MCG/Formoterol 5 MCG 120 PUFF INHALER INH SCH ×2 (06:36→20:52)
[2019-10-13] MEDS: Acetaminophen 500 MG TAB PO SCH ×4 (06:43→23:32)
--- NOTE | 2019-10-13 06:47 | PRG ---
DATE OF SERVICE: 10/12/2019 SUBJECTIVE: The patient is doing well this morning. Reports that he continued to have some pain while lying in bed, but limited pain while working with Physical Therapy. He reports that he continues to void without any difficulty, though has still not had a bowel movement. He does continue to reject stool softeners and lactulose at this time as he reports that his bowel regimen is usually having 1 bowel movement for 1-1/2 weeks, and this is normal for him, and he would prefer to be able to go on his own. He continues to tolerate the Serax well. For his pain, his tramadol was increased from 50 mg q.6 hours to 100 mg q.6 hours scheduled. Discussed that at this time, rehab has accepted him to go, and he needs insurance clearance at this time. The patient was agreeable with the plan of care. OBJECTIVE: VITAL SIGNS: Temperature 97.6 Fahrenheit, pulse 84, respiratory rate 18, oxygen saturation 96% on room air, blood pressure 122/78. GENERAL: Elderly male, in no acute distress, sitting upright in bed. HEENT: Normocephalic and atraumatic. Midline trachea. RESPIRATORY: Equal rise and fall. The patient in no acute distress. CARDIOVASCULAR: Regular rate and rhythm. No murmurs appreciated. MUSCULOSKELETAL: The patient is moving well and ambulatory. Bandaging in place, which is clean, dry, and intact. NEUROLOGIC: A and O x4. PSYCHIATRIC: Normal mood and affect. No signs of alcohol withdrawal at this time. LABORATORY DATA: No new laboratory data to report. IMAGING: No new imaging to report. ASSESSMENT: 1. Status post mechanical fall. 2. Left intertrochanteric femur fracture, status post repair. 3. History of chronic obstructive pulmonary disease, hypertension, and alcohol abuse. 4. Left-sided postoperative pain. 5. Constipation. PLAN: We will continue the patient's diet at this time. I have increased his pain regimen from tramadol 50 mg to 100 mg q.6 hours scheduled. The patient is refusing a bowel regimen at this time, but he reports that he believes he will have a bowel movement today. We will continue to monitor. We are waiting for insurance authorization for the patient to go to rehab, and we believe he is stable for discharge at this time pending acceptance and insurance authorization. The patient was evaluated, and his case was discussed with Dr. Loaiza during morning rounds, and he is agreeable with the plan of care. Job ID: [id number]
[2019-10-13] MEDS: Nicotine 14 MG PATCH TD SCH (10:18)
[2019-10-13] MEDS: Gabapentin 300 MG CAP PO SCH ×3 (10:19→20:08)
[2019-10-13] MEDS: Multivitamin W/ Minerals 1 TAB PO SCH (10:19)
[2019-10-13] MEDS: Thiamine 100 MG TAB PO SCH (10:19)
[2019-10-13] MEDS: Lisinopril 10 MG TAB PO SCH (10:20)
[2019-10-13] MEDS: Aspirin 81 mg Enteric Coated Tablet PO SCH ×2 (10:21→20:08)
[2019-10-13] MEDS: Folic Acid 1 MG TAB PO SCH (10:21)
[2019-10-13] MEDS: Oxazepam 10 MG CAP PO SCH ×4 (10:21→20:09)
[2019-10-13] MEDS: Senokot S 8.6-50 MG TAB PO SCH ×2 (12:04→20:08)
[2019-10-13] MEDS: Polyethylene Glycol 3350 17 GM Packet PO SCH (12:04)
--- NOTE | 2019-10-13 15:26 | PRG ---
DATE OF SERVICE: 10/13/2019 SUBJECTIVE: The patient was evaluated today as he was lying down in bed. He reports his pain is well controlled, he just notices pain when he tries to get out of bed, but he learned some tips from physical therapy on how to facilitate this process easily with less pain. He still does not had a bowel movement and he was agreeable today to trying lactulose with orange juice at this time. He does note that he has a decreased appetite, but he is not willing to take Ensure supplements at this time, because he is lactose intolerant and he also just does not like the way the any Ensure shake tastes. Discussed with the patient that we are still pending rehab insurance authorization as the patient has insurance from the [place]. The patient was agreeable with the plan of care and had no other complaints. OBJECTIVE: VITAL SIGNS: Temperature 98.2 Fahrenheit, pulse 90, respiratory rate 12, 95% on room air, and blood pressure 133/83. LABORATORY DATA: No new labs to report. DIAGNOSTIC DATA: No new diagnostic imaging to report. ASSESSMENT: 1. Status post mechanical fall. 2. Left intertrochanteric femur fracture, status post repair. 3. History of chronic obstructive pulmonary disease, hypertension, and alcohol abuse. 4. Left-sided postoperative pain. 5. Constipation. PLAN: We will continue the patient's diet as it is for now. The patient agreeable to trying lactulose with orange juice to help him have a bowel movement at this time. The patient reports that his pain is now well controlled on the tramadol 100 mg q.6 hours scheduled. The patient is denying any Ensure or other supplementary shakes at this time and will work on trying to eat food for nutrition. Case Management to continue working with the [place] to help insurance authorization for the patient to go to rehab at this time. The patient to continue work with PT, OT as he is making great progress. The patient was evaluated and the case discussed with Dr. Loaiza on morning rounds and he is agreeable with the plan of care. Job ID: [id number]
[2019-10-14] MEDS: cloNIDine 0.1 MG TAB PO SCH ×3 (02:43→15:18)
[2019-10-14] MEDS: traMADol HCl 50 MG TAB PO SCH ×3 (02:43→15:19)
[2019-10-14] MEDS: Acetaminophen 500 MG TAB PO SCH ×3 (05:58→18:02)
[2019-10-14] MEDS: Mometasone 200 MCG/Formoterol 5 MCG 120 PUFF INHALER INH SCH (06:36)
[2019-10-14 08:16] LABS: #Basophils 0.1 thou/uL (0.0-0.2); #Eosinphils 0.2 thou/uL (0.0-0.7); #Lymphocytes 1.6 thou/uL (1.20-3.40); #Monocytes 0.8 thou/uL (0.11-0.59); #Neutrophils 3.7 thou/uL (1.40-6.50); %Lymphocytes 25.5 % (21.0-51.0); %Monocytes 12.1 % (0.0-10.0); %Neutrophils 58.4 % (42.0-75.0); Hemoglobin 9.5 g/dL (14.0-18.0); Mean Corpuscular HGB CONC 34.1 g/dL (32.0-36.0); Mean Corpuscular Hemoglobin 33.6 pg (27.0-31.0); Mean Corpuscular Volume 98.7 fL (78.0-98.0); Platelet Count 517 thou/uL (130-400); RBC Distribution Width 11.9 % (11.5-14.5); Red Blood Cell (RBC) Count 2.81 mill/uL (4.70-6.10); White Blood Cell (WBC) Count 6.3 thou/uL (4.8-10.8)
[2019-10-14 08:30] LABS: Anion Gap 8 mmol/L (10-20); BUN (Urea Nitrogen) 10 mg/dL (8.4-25.7); Calc. Creatinine Clearance 90 mL/min (70-130); Calcium 9.4 mg/dL (7.8-10.44); Carbon Dioxide 30 mmol/L (23-31); Chloride 100 mmol/L (98-107); Estimated GFR-MDRD Greater than 90; Glucose 94 mg/dL (80-115); Potassium 3.8 mmol/L (3.5-5.1); Sodium 134 mmol/L (136-145)
[2019-10-14] MEDS: Aspirin 81 mg Enteric Coated Tablet PO SCH (09:12)
[2019-10-14] MEDS: Oxazepam 10 MG CAP PO SCH ×3 (09:12→18:02)
[2019-10-14] MEDS: Gabapentin 300 MG CAP PO SCH ×2 (09:12→15:19)
[2019-10-14] MEDS: Folic Acid 1 MG TAB PO SCH (09:13)
[2019-10-14] MEDS: Thiamine 100 MG TAB PO SCH (09:13)
[2019-10-14] MEDS: Multivitamin W/ Minerals 1 TAB PO SCH (09:13)
[2019-10-14] MEDS: Nicotine 14 MG PATCH TD SCH (10:31)
[2019-10-14] MEDS: Senokot S 8.6-50 MG TAB PO SCH (14:33)
[2019-10-14] MEDS: Polyethylene Glycol 3350 17 GM Packet PO SCH (14:33)
[2019-10-14] MEDS: Lisinopril 10 MG TAB PO SCH (14:33)
[2019-10-14 18:06] VITALS: BP 147/81; TEMP 97.5
--- NOTE | 2019-10-15 00:14 | DIS ---
DATE OF ADMISSION: 10/06/2019 DATE OF DISCHARGE: 10/14/2019 ADMISSION DIAGNOSES: Mechanical fall from standing and left intertrochanteric femur fracture. DISCHARGE DIAGNOSES: Mechanical fall from standing and left intertrochanteric femur fracture. CONSULTING PHYSICIAN: Dr. Mccann of Orthopedic Surgery. PROCEDURES PERFORMED: The patient went to the OR on October 06, 2019, and had an ORIF of the left intertrochanteric femur by Dr. Mccann. HOSPITAL COURSE: The patient is a 63-year-old male, who presented to the emergency department after mechanical fall at home while intoxicated. He had a left intertrochanteric femur fracture for which Dr. Mccann evaluated him. He went to the OR on October 05 for fixation. Postoperatively, he worked with Physical and Occupational Therapy. He was tolerating a diet. He was treated for alcohol withdrawal symptoms and was well controlled. At the time of discharge, the patient's pain was well controlled. He was tolerating a regular diet, ambulating with physical therapy and voiding without issues. DISCHARGE DISPOSITION: Acute rehab. DISCHARGE CONDITION: Satisfactory. PHYSICAL EXAMINATION: VITAL SIGNS: Temperature 97.8, pulse 85, respirations 14, oxygen saturation 92% on room air, and blood pressure 124/79. GENERAL: Well-appearing elderly male, sitting up in bed with no signs of acute distress. PULMONARY: Equal chest rise and fall. Clear breath sounds bilaterally. No signs of acute respiratory distress. CARDIAC: Regular rate and rhythm. GASTROINTESTINAL: Abdomen is soft, nontender, and nondistended. EXTREMITIES: 2+ pulses in all extremities. Gross motor and sensations intact. No significant swelling noted. NEURO: GCS 15. DISCHARGE INSTRUCTIONS: The patient was discharged to acute rehab facility. Activity as tolerated. Weightbearing as tolerated. Regular diet. PT/OT. Incentive spirometer and a walker. DISCHARGE MEDICATIONS: Include: 1. Tylenol. 2. Aspirin. 3. Clonidine. 4. Flexeril. 5. Folic acid. 6. Gabapentin. 7. Ipratropium. 8. Lactulose. 9. Lisinopril. 10. Dulera inhaler. 11. Multivitamins with minerals. 12. Nicotine patch. 13. MiraLAX. 14. Senokot S. 15. Thiamine. 16. Tramadol. FOLLOWUP APPOINTMENTS: The patient is to follow up with Dr. Mccann's in clinic. No followup needed with Trauma Service. This is a summary of the patient's hospitalization. For full details, please see his medical record in its entirety. This patient was seen and evaluated with Dr. Loaiza and myself this morning during rounds and on the day of discharge. Job ID: [id number]
--- NOTE | 2019-10-15 15:17 | EKG ---
Test Reason : Blood Pressure : / mmHG Vent. Rate : 089 BPM Atrial Rate : 089 BPM P-R Int : 110 ms QRS Dur : 092 ms QT Int : 384 ms P-R-T Axes : 063 268 078 degrees QTc Int : 467 ms Sinus rhythm with short ME Right superior axis deviation Nonspecific T wave abnormality Abnormal ECG Confirmed by HYUN NUNEZ M.D. ([id number]), electronic news gathering editor DAA DOBSON ([id number]) on 10/15/2019 3:16:38 PM Referred By: Confirmed By:HYUN NUNEZ M.D.
== END 2019-10-14 18:15 | DRG 481 ==
LOC: ERS 00:02 → SURG B 02:56 → ERHOLD 03:38 → SURG B 03:56 → SURG A 10-08 16:56
PROVIDERS: ADMIT Specialist; ATTEND Specialist
PROC: 0QS704Z Reposition Left Upper Femur with Internal Fixation Device, Open Approach (ICD-10-PCS; principal; 2019-10-06)
DX: S72.142A Displaced intertrochanteric fracture of left femur, initial encounter for closed fracture (principal); E87.1 Hypo-osmolality and hyponatremia; W06.XXXA Fall from bed, initial encounter; J44.9 Chronic obstructive pulmonary disease, unspecified; F17.210 Nicotine dependence, cigarettes, uncomplicated; I10 Essential (primary) hypertension; R40.2413 Glasgow coma scale score 13-15, at hospital admission; K59.00 Constipation, unspecified; F10.10 Alcohol abuse, uncomplicated; E83.42 Hypomagnesemia; E83.39 Other disorders of phosphorus metabolism; Y92.009 Unspecified place in unspecified non-institutional (private) residence as the place of occurrence of the external cause; Z71.6 Tobacco abuse counseling
CPT/HCPCS: 36415; 71045; 72170; 72192; 76000; 80048; 80053; 83735; 84100; 85025; 85610; 85730; 87635; 93005; 94640; 96372; 96374; 96375; C1713; G0390; J0690; J2001; J2270; J2360; J2405; J2550; J2704; J3010; J3475; J7050; J7620; U0003

== ENCOUNTER 2021-12-02 15:09 | Inpatient (IN) | payer OTHER ==
[2021-12-02 15:47] LABS: #Basophils 0.1 thou/uL (0.0-0.2); #Eosinphils 0.1 thou/uL (0.0-0.7); #Lymphocytes 1.8 thou/uL (1.20-3.40); #Monocytes 0.8 thou/uL (0.11-0.59); #Neutrophils 11.7 thou/uL (1.40-6.50); %Basophils 0.7 % (0.0-1.0); %Eosinophils 0.8 % (0.0-10.0); %Lymphocytes 12.1 % (21.0-51.0); %Monocytes 5.4 % (0.0-10.0); Hemoglobin 12.7 g/dL (14.0-18.0); Mean Corpuscular HGB CONC 33.8 g/dL (32.0-36.0); Mean Corpuscular Hemoglobin 34.1 pg (27.0-31.0); Mean Platelet Volume 6.8 fL (7.4-10.4); Platelet Count 425 thou/uL (130-400); Red Blood Cell (RBC) Count 3.72 mill/uL (4.70-6.10); White Blood Cell (WBC) Count 14.5 thou/uL (4.8-10.8)
[2021-12-02] MEDS ORDERED: Propofol 1,000 MG/100 ML VIAL IV ONE ×2 (15:47→20:16)
[2021-12-02] MEDS ORDERED: Rocuronium Bromide 10 MG/ML (10ML VIAL) ONE (15:47)
[2021-12-02 15:54] LABS: PTT 24.5 sec (22.9-36.1); Prothrombin Time 13.3 sec (12.0-14.7)
[2021-12-02] MEDS ORDERED: Iopamidol-370 76% 500 ML 1 ML ONE (15:56)
[2021-12-02 16:12] LABS: Acetaminophen Less than 10.0 mcg/mL (10.0-30.0); Alcohol Less than 10 mg/dL (Less than 10); Salicylate Less than 8.0 mg/dL (15.0-30.0)
[2021-12-02 16:13] LABS: ALT (SGPT) 30 U/L (8-55); AST (SGOT) 34 U/L (5-34); Albumin 4.6 g/dL (3.4-4.8); Alkaline Phosphatase 62 U/L (40-110); Anion Gap 19 mmol/L (10-20); BUN (Urea Nitrogen) 9 mg/dL (8.4-25.7); Bilirubin, Total 0.5 mg/dL (0.2-1.2); Calc. Creatinine Clearance 0 mL/min (70-130); Calcium 9.4 mg/dL (7.8-10.44); Carbon Dioxide 22 mmol/L (23-31); Chloride 97 mmol/L (98-107); Estimated GFR 95; Globulin 2.9 g/dL (2.4-3.5); Glucose 157 mg/dL (80-115); Potassium 4.9 mmol/L (3.5-5.1); Protein, Total 7.5 g/dL (5.8-8.1); Sodium 133 mmol/L (136-145)
[2021-12-02 16:23] LABS: Actual Bicarbonate (HCO3v) 20 mEq/L (22-28); Base Excess -5.9 mEq/L (-2.0 to +3.0); Calcium, Ionized (venous) 1.11 mmol/L (1.16-1.32); Chloride (VBG) 96 mmol/L (98-106); Hemoglobin (Hb) 13.5 g/dL (12.6-17.4); Potassium (VBG) 4.77 mmol/L (3.70-5.30); Sodium 131.2 mmol/L (133-146); pH (venous) 7.31 (7.32-7.43)
[2021-12-02 16:32] LABS: Bilirubin Negative (Negative); Blood, Urine Negative (Negative); Clarity Clear (Clear); Glucose, Urine (Dipstick) Normal (Negative); Ketone, Urine Negative (Negative); Leukocyte Negative Leu/uL (Negative); Nitrite Negative (Negative); Protein, Urine (Dipstick) 20 mg/dL (Neg-Trace); Specific Gravity, Urine 1.012 (1.002-1.036); Urobilinogen Normal mg/dL (Less than 2); pH, Urine 5.5 (5.0-9.0)
[2021-12-02 16:39] LABS: Amphetamine Not Detected (NotDetected); Barbiturates Screen Not Detected (NotDetected); Benzodiazepine Screen Not Detected (NotDetected); Cocaine Metabolite Screen Not Detected (NotDetected); Methadone Not Detected (NotDetected); Methamphetamine Not Detected (NotDetected); Opiate Screen Not Detected (NotDetected); Oxycodone Screen Not Detected (NotDetected); Phencyclidine (PCP) Not Detected (NotDetected); THC/Cannabinoid Screen Not Detected (NotDetected); Tricyclic Screen Not Detected (NotDetected)
[2021-12-02] MEDS ORDERED: Fentanyl 100 MCG/2 ML VIAL ONE (16:40)
[2021-12-02 17:32] LABS: Actual Bicarbonate (HCO3a) 20.3 mEq/L (22-28); Analyzer IN Cardio ER; Base Excess (BEa) -6.4 mEq/L (-2.0 to +3.0); CO2 Tension 44.6 mmHg (35.0-45.0); Calcium, Ionized (arterial) 1.15 mmol/L (1.12-1.30); Carboxyhemoglobin (COHb) 1.3 gm% (0.0-3.0); Hemoglobin (Hb) 13.1 g/dL (14.0-18.0); Potassium - ABG Lab 4.48 mmol/L (3.70-5.30); pH, Arterial 7.28 (7.35-7.45)
[2021-12-02 17:36] LABS: Puncture Site RRA
[2021-12-02] MEDS ORDERED: Heparin 25,000 units/D5W 500 ML ONE (18:11)
[2021-12-02] MEDS ORDERED: Fentanyl CADD 100 ML IV SCH (18:15)
[2021-12-02] MEDS ORDERED: Midazolam HCl 5 mg/ml Vial ONE (18:50)
[2021-12-02] MEDS ORDERED: Lorazepam 2 MG/ML VIAL SLOW IVP PRN (19:09)
[2021-12-02] MEDS ORDERED: Midazolam HCl 5 mg/ml Vial SLOW IVP SCH (19:15)
[2021-12-02] MEDS ORDERED: NOREPINEPHRINE 8 MG/250 ML-D5W 250 ML ONE (19:37)
[2021-12-02] MEDS ORDERED: Ketamine 50 MG/ML (10ML VIAL) ONE (19:58)
[2021-12-02 20:19] LABS: SARS-CoV-2 NAA Rapid Test Not Detected (NotDetected)
[2021-12-02] MEDS ORDERED: Midazolam HCl 2 mg/2 ml Vial SLOW IVP PRN (21:08)
[2021-12-02] MEDS ORDERED: Propofol BOLUS 1,000 MG/100 ML VIAL IV PRN (21:15)
[2021-12-02] MEDS ORDERED: DISCONTINUE PREVIOUS NARCOTIC PAIN MEDICATIONS AND BENZODIAZEPINES FS SCH (21:15)
[2021-12-02] MEDS ORDERED: Propofol 1,000 MG/100 ML VIAL IV PRN (21:15)
[2021-12-02] MEDS ORDERED: Fentanyl BOLUS 250 ML IVPB PRN (21:15)
[2021-12-02] MEDS ORDERED: Morphine 2 MG/ML VIAL SLOW IVP PRN (21:15)
[2021-12-02] MEDS: Sodium Chloride 0.9% 1,000 ML IV SCH (22:26)
[2021-12-02 22:39] LABS: Magnesium 1.9 mg/dL (1.6-2.6)
[2021-12-02] MEDS ORDERED: NOREPINEPHRINE 8 MG/250 ML-D5W 250 ML IVPB SCH (23:00)
[2021-12-02] MEDS: Multivitamins, Adult 10 ML, Folic Acid 1 MG, Thiamine HCl 100 MG in Dextrose 5 %-0.45 %... IV SCH (23:00)
[2021-12-02 23:10] LABS: Anion Gap 16 mmol/L (10-20); BUN (Urea Nitrogen) 8 mg/dL (8.4-25.7); Calc. Creatinine Clearance 0 mL/min (70-130); Calcium 8.2 mg/dL (7.8-10.44); Carbon Dioxide 22 mmol/L (23-31); Chloride 100 mmol/L (98-107); Estimated GFR 99; Glucose 135 mg/dL (80-115); Potassium 4.3 mmol/L (3.5-5.1); Sodium 134 mmol/L (136-145)
[2021-12-03 00:42] VITALS: BMI 21.2
[2021-12-03 05:31] LABS: #Basophils 0.1 thou/uL (0.0-0.2); #Lymphocytes 2.3 thou/uL (1.20-3.40); #Monocytes 1.4 thou/uL (0.11-0.59); %Basophils 0.5 % (0.0-1.0); %Eosinophils 0.1 % (0.0-10.0); %Lymphocytes 19.3 % (21.0-51.0); %Monocytes 11.9 % (0.0-10.0); %Neutrophils 68.2 % (42.0-75.0); Hemoglobin 11.3 g/dL (14.0-18.0); Mean Corpuscular HGB CONC 33.5 g/dL (32.0-36.0); Mean Platelet Volume 6.8 fL (7.4-10.4); Platelet Count 372 thou/uL (130-400); Red Blood Cell (RBC) Count 3.32 mill/uL (4.70-6.10); White Blood Cell (WBC) Count 11.7 thou/uL (4.8-10.8)
[2021-12-03 05:51] LABS: ALT (SGPT) 23 U/L (8-55); AST (SGOT) 37 U/L (5-34); Albumin 3.7 g/dL (3.4-4.8); Alkaline Phosphatase 52 U/L (40-110); Anion Gap 10 mmol/L (10-20); BUN (Urea Nitrogen) 6 mg/dL (8.4-25.7); Bilirubin, Total 0.7 mg/dL (0.2-1.2); Calc. Creatinine Clearance 82 mL/min (70-130); Calcium 8.2 mg/dL (7.8-10.44); Carbon Dioxide 28 mmol/L (23-31); Chloride 101 mmol/L (98-107); Estimated GFR 99; Globulin 2.4 g/dL (2.4-3.5); Glucose 158 mg/dL (80-115); Potassium 3.9 mmol/L (3.5-5.1); Protein, Total 6.1 g/dL (5.8-8.1); Sodium 135 mmol/L (136-145)
[2021-12-03] MEDS ORDERED: Electrolyte Replacement Protocol 1 EACH FS SCH (08:45)
[2021-12-03] MEDS ORDERED: Aspirin 300 MG Suppository PR SCH (09:00)
[2021-12-03] MEDS ORDERED: Lactated Ringer's 1,000 ML IV SCH (09:00)
[2021-12-03 09:19] LABS: Cardiac Risk 1.8 (Less than 4.5)
[2021-12-03] MEDS ORDERED: Electrolyte Replacement Protocol FS PRN (09:30)
[2021-12-03] MEDS: Enoxaparin Sodium 40 MG/0.4 ML SYRINGE SC SCH ×2 (09:44→20:08)
[2021-12-03] MEDS: Senokot S 8.6-50 MG TAB PO SCH ×3 (09:45→20:12)
[2021-12-03] MEDS: Polyethylene Glycol 3350 17 GM Packet PER TUBE SCH (09:45)
[2021-12-03] MEDS: Sodium Chloride 0.9% 1,000 ML IV SCH ×3 (09:46→20:08)
[2021-12-03 10:13] LABS: Phosphorus 2.7 mg/dL (2.3-4.7)
[2021-12-03 10:15] LABS: Magnesium 1.8 mg/dL (1.6-2.6)
[2021-12-03] MEDS ORDERED: Lorazepam 1 MG TAB PO PRN (10:42)
[2021-12-03] MEDS ORDERED: Ondansetron ODT 4 MG TAB PO PRN (10:42)
[2021-12-03] MEDS ORDERED: Lorazepam 1 MG TAB PO SCH ×2 (10:45→12:00)
[2021-12-03 11:54] LABS: ALT (SGPT) 22 U/L (8-55); AST (SGOT) 39 U/L (5-34); Albumin 3.6 g/dL (3.4-4.8); Alkaline Phosphatase 50 U/L (40-110); Anion Gap 12 mmol/L (10-20); BUN (Urea Nitrogen) 4 mg/dL (8.4-25.7); Bilirubin, Total 0.8 mg/dL (0.2-1.2); Calc. Creatinine Clearance 89 mL/min (70-130); Calcium 8.3 mg/dL (7.8-10.44); Carbon Dioxide 27 mmol/L (23-31); Chloride 101 mmol/L (98-107); Estimated GFR 101; Globulin 2.4 g/dL (2.4-3.5); Glucose 114 mg/dL (80-115); Potassium 3.8 mmol/L (3.5-5.1); Sodium 136 mmol/L (136-145)
[2021-12-03] MEDS ORDERED: Magnesium 2 GM/50 ML(in water) 2 GM in Premix Bag 1 BAG IVPB SCH (12:00)
[2021-12-03] MEDS: Lorazepam 1 MG TAB PO SCH ×2 (13:39→18:17)
[2021-12-03] MEDS ORDERED: Lorazepam 2 MG/ML VIAL SLOW IVP SCH (15:00)
[2021-12-03] MEDS: BEER 1 CAN PO SCH (18:06)
[2021-12-03] MEDS: Atorvastatin Calcium 40 MG TAB PER TUBE SCH (20:07)
[2021-12-03] MEDS: Nicotine 21 MG PATCH TOP SCH (20:07)
[2021-12-03] MEDS: Multivitamins, Adult 10 ML, Folic Acid 1 MG, Thiamine HCl 100 MG in Dextrose 5 %-0.45 %... IV SCH (21:19)
[2021-12-04] MEDS ORDERED: Lorazepam 1 MG TAB PO PRN
[2021-12-04] MEDS: Lorazepam 1 MG TAB PO SCH ×4 (00:45→18:05)
[2021-12-04 05:19] LABS: #Lymphocytes 1.1 thou/uL (1.20-3.40); #Monocytes 0.7 thou/uL (0.11-0.59); #Neutrophils 10.9 thou/uL (1.40-6.50); %Basophils 0.2 % (0.0-1.0); %Eosinophils 0.2 % (0.0-10.0); %Lymphocytes 8.7 % (21.0-51.0); %Monocytes 5.4 % (0.0-10.0); %Neutrophils 85.5 % (42.0-75.0); Hemoglobin 10.4 g/dL (14.0-18.0); Mean Corpuscular HGB CONC 33.9 g/dL (32.0-36.0); Mean Corpuscular Hemoglobin 34.7 pg (27.0-31.0); Mean Platelet Volume 6.8 fL (7.4-10.4); Platelet Count 229 thou/uL (130-400); RBC Distribution Width 11.8 % (11.5-14.5); White Blood Cell (WBC) Count 12.8 thou/uL (4.8-10.8)
[2021-12-04 06:00] LABS: ALT (SGPT) 21 U/L (8-55); AST (SGOT) 45 U/L (5-34); Albumin 3.2 g/dL (3.4-4.8); Alkaline Phosphatase 47 U/L (40-110); Anion Gap 10 mmol/L (10-20); BUN (Urea Nitrogen) 4 mg/dL (8.4-25.7); Bilirubin, Total 0.7 mg/dL (0.2-1.2); Calc. Creatinine Clearance 93 mL/min (70-130); Calcium 8.1 mg/dL (7.8-10.44); Carbon Dioxide 29 mmol/L (23-31); Chloride 95 mmol/L (98-107); Estimated GFR 103; Globulin 2.2 g/dL (2.4-3.5); Glucose 116 mg/dL (80-115); Potassium 3.8 mmol/L (3.5-5.1); Protein, Total 5.4 g/dL (5.8-8.1); Sodium 130 mmol/L (136-145)
[2021-12-04] MEDS: Sodium Chloride 0.9% 1,000 ML IV SCH ×2 (06:12→12:31)
[2021-12-04] MEDS: BEER 1 CAN PO SCH ×2 (07:45→18:05)
[2021-12-04] MEDS: Aspirin 325 mg Enteric Coated Tablet PO SCH (08:29)
[2021-12-04] MEDS: Enoxaparin Sodium 40 MG/0.4 ML SYRINGE SC SCH ×2 (08:29→20:21)
[2021-12-04] MEDS: Senokot S 8.6-50 MG TAB PO SCH ×2 (09:52→20:23)
[2021-12-04] MEDS: Polyethylene Glycol 3350 17 GM Packet PER TUBE SCH (09:52)
[2021-12-04] MEDS ORDERED: Lorazepam 2 MG/ML VIAL SLOW IVP PRN (18:03)
[2021-12-04] MEDS ORDERED: Ondansetron PF 4 MG/2 ML Vial IVP PRN (18:03)
[2021-12-04] MEDS: Lansoprazole 3 MG/ML ORAL SUSPENSION PER TUBE SCH (18:05)
[2021-12-04] MEDS: Nicotine 21 MG PATCH TOP SCH (20:21)
[2021-12-04] MEDS: Atorvastatin Calcium 40 MG TAB PER TUBE SCH (20:23)
[2021-12-04] MEDS: Multivitamins, Adult 10 ML, Folic Acid 1 MG, Thiamine HCl 100 MG in Dextrose 5 %-0.45 %... IV SCH (21:50)
[2021-12-05] MEDS ORDERED: Lorazepam 1 MG TAB PO PRN
[2021-12-05] MEDS: Lorazepam 1 MG TAB PO SCH (01:12)
[2021-12-05 05:50] LABS: #Eosinphils 0.1 thou/uL (0.0-0.7); #Lymphocytes 1.1 thou/uL (1.20-3.40); #Monocytes 0.9 thou/uL (0.11-0.59); %Basophils 0.3 % (0.0-1.0); %Eosinophils 0.6 % (0.0-10.0); %Lymphocytes 8.8 % (21.0-51.0); %Neutrophils 83.3 % (42.0-75.0); Hemoglobin 10.1 g/dL (14.0-18.0); Mean Corpuscular Hemoglobin 33.6 pg (27.0-31.0); Mean Platelet Volume 6.9 fL (7.4-10.4); Platelet Count 211 thou/uL (130-400); RBC Distribution Width 11.6 % (11.5-14.5); Red Blood Cell (RBC) Count 3.02 mill/uL (4.70-6.10)
[2021-12-05 06:02] LABS: ALT (SGPT) 23 U/L (8-55); AST (SGOT) 47 U/L (5-34); Albumin 3.3 g/dL (3.4-4.8); Alkaline Phosphatase 51 U/L (40-110); Anion Gap 13 mmol/L (10-20); BUN (Urea Nitrogen) 4 mg/dL (8.4-25.7); Bilirubin, Total 0.7 mg/dL (0.2-1.2); Calc. Creatinine Clearance 98 mL/min (70-130); Calcium 8.2 mg/dL (7.8-10.44); Carbon Dioxide 26 mmol/L (23-31); Chloride 92 mmol/L (98-107); Estimated GFR 104; Globulin 2.4 g/dL (2.4-3.5); Glucose 122 mg/dL (80-115); Potassium 3.3 mmol/L (3.5-5.1); Protein, Total 5.7 g/dL (5.8-8.1); Sodium 128 mmol/L (136-145)
[2021-12-05] MEDS: Lorazepam 0.5 MG TAB PO SCH ×3 (06:48→19:53)
[2021-12-05] MEDS ORDERED: Potassium Bicarbonate/Cit Ac 20 MEQ TAB PER TUBE SCH (08:00)
[2021-12-05] MEDS: Aspirin 325 mg Enteric Coated Tablet PO SCH (08:29)
[2021-12-05] MEDS: Senokot S 8.6-50 MG TAB PO SCH ×2 (08:29→21:01)
[2021-12-05] MEDS: Polyethylene Glycol 3350 17 GM Packet PER TUBE SCH (08:29)
[2021-12-05] MEDS: Enoxaparin Sodium 40 MG/0.4 ML SYRINGE SC SCH (08:29)
[2021-12-05] MEDS: Lansoprazole 3 MG/ML ORAL SUSPENSION PER TUBE SCH (08:30)
[2021-12-05] MEDS ORDERED: Potassium Chloride 20 MEQ TAB PO SCH (08:30)
[2021-12-05] MEDS: Sodium Chloride 0.9% 1,000 ML IV SCH (08:34)
[2021-12-05] MEDS: BEER 1 CAN PO SCH ×2 (11:05→18:24)
[2021-12-05] MEDS: Mometasone 200 MCG/Formoterol 5 MCG 120 PUFF INHALER INH SCH (19:48)
[2021-12-05] MEDS: Nicotine 21 MG PATCH TOP SCH (20:56)
[2021-12-05] MEDS: guaiFENesin/Codeine 200 mg/20 mg 10 ml Cup PO PRN (20:56)
[2021-12-05] MEDS: Atorvastatin Calcium 40 MG TAB PER TUBE SCH (20:57)
[2021-12-05] MEDS: Multivitamins, Adult 10 ML, Folic Acid 1 MG, Thiamine HCl 100 MG in Dextrose 5 %-0.45 %... IV SCH (21:16)
[2021-12-06] MEDS ORDERED: Lorazepam 0.5 MG TAB PO PRN
[2021-12-06] MEDS: Lorazepam 0.5 MG TAB PO SCH (00:30)
[2021-12-06] MEDS: Mometasone 200 MCG/Formoterol 5 MCG 120 PUFF INHALER INH SCH ×2 (07:25→18:19)
[2021-12-06] MEDS: Senokot S 8.6-50 MG TAB PO SCH ×2 (09:00→21:36)
[2021-12-06] MEDS: Lansoprazole 3 MG/ML ORAL SUSPENSION PER TUBE SCH (09:00)
[2021-12-06] MEDS: Aspirin 325 mg Enteric Coated Tablet PO SCH (09:00)
[2021-12-06] MEDS: Polyethylene Glycol 3350 17 GM Packet PER TUBE SCH (09:00)
[2021-12-06] MEDS ORDERED: Potassium Chloride 20 MEQ TAB PO SCH (09:45)
[2021-12-06] MEDS ORDERED: Heparin 5,000 UNITS/ML VIAL ONE (09:50)
[2021-12-06] MEDS ORDERED: fentaNYL Citrate/PF 100 MCG/2 ML SYRINGE ONE (10:11)
[2021-12-06] MEDS ORDERED: HYDROmorphone 0.5 MG/0.5 ML SYRINGE ONE (10:11)
[2021-12-06] MEDS ORDERED: Lidocaine 1% MPF 2 ML VIAL ONE (10:11)
[2021-12-06] MEDS ORDERED: Midazolam HCl 2 mg/2 ml Vial ONE (10:11)
[2021-12-06] MEDS ORDERED: Bupivacaine/Epinephrine 0.25% 30 ML VIAL ONE (10:31)
[2021-12-06] MEDS ORDERED: EPINEPHrine 1 MG/ML AMP ONE (10:31)
[2021-12-06] MEDS ORDERED: Dexamethasone 4 mg/ml Vial ONE (10:32)
[2021-12-06] MEDS ORDERED: PROPOFOL 200 MG/20 ML VIAL ONE (10:35)
[2021-12-06] MEDS ORDERED: Dexamethasone 20 MG/5 ML VIAL ONE (10:35)
[2021-12-06] MEDS ORDERED: Phenylephrine 10 MG/ML VIAL ONE (10:35)
[2021-12-06] MEDS ORDERED: Ondansetron PF 4 MG/2 ML Vial ONE (10:35)
[2021-12-06] MEDS ORDERED: Lidocaine 1% PF 5 ML VIAL ONE (10:35)
[2021-12-06] MEDS ORDERED: Rocuronium Bromide 10 MG/ML (10ML VIAL) ONE (10:35)
[2021-12-06] MEDS ORDERED: Protamine Sulfate 50 MG/5 ML VIAL ONE (11:19)
[2021-12-06] MEDS: BEER 1 CAN PO SCH ×2 (12:00→21:36)
[2021-12-06] MEDS ORDERED: Promethazine HCl 25 MG/ML VIAL IM PRN ×2 (12:39→12:45)
[2021-12-06] MEDS ORDERED: Ondansetron HCl/PF 4 MG/2 ML Vial IVP PRN (12:39)
[2021-12-06] MEDS ORDERED: HYDROmorphone 2 MG/ML VIAL SLOW IVP PRN (12:39)
[2021-12-06] MEDS ORDERED: Ketorolac Tromethamine 30 MG/ML VIAL IVP PRN (12:39)
[2021-12-06] MEDS ORDERED: Promethazine HCl 25 MG/ML VIAL IVPB PRN (12:39)
[2021-12-06] MEDS ORDERED: Albuterol Sulfate 2.5 mg/3 ml Neb NEB PRN (12:41)
[2021-12-06] MEDS ORDERED: Acetaminophen 325 MG TAB PO PRN (12:45)
[2021-12-06] MEDS ORDERED: Ondansetron PF 4 MG/2 ML Vial IVP PRN (12:45)
[2021-12-06] MEDS ORDERED: traMADol HCl 50 MG TAB PO PRN ×2 (12:45)
[2021-12-06] MEDS ORDERED: Nitroglycerin 50 MG/250 ML BOT 250 ML IVPB PRN (12:45)
[2021-12-06] MEDS ORDERED: hydrALAZINE 20 MG/ML VIAL SLOW IVP PRN (12:45)
[2021-12-06] MEDS: Sodium Chloride 0.9% 1,000 ML IV SCH ×2 (13:00→22:09)
[2021-12-06] MEDS: guaiFENesin/Codeine 200 mg/20 mg 10 ml Cup PO PRN (17:53)
[2021-12-06] MEDS: CEFAZOLIN 2 GM in Sodium Chloride 0.9% 100 ML IVPB SCH (18:30)
[2021-12-06 18:48] VITALS: BP 110/70
[2021-12-06] MEDS: Nicotine 21 MG PATCH TOP SCH (21:35)
[2021-12-06] MEDS: Atorvastatin Calcium 40 MG TAB PER TUBE SCH (21:36)
[2021-12-06] MEDS: Multivitamins, Adult 10 ML, Folic Acid 1 MG, Thiamine HCl 100 MG in Dextrose 5 %-0.45 %... IV SCH (22:05)
[2021-12-07] MEDS: CEFAZOLIN 2 GM in Sodium Chloride 0.9% 100 ML IVPB SCH ×2 (02:38→09:37)
[2021-12-07 04:06] LABS: #Lymphocytes 0.3 thou/uL (1.20-3.40); #Monocytes 0.5 thou/uL (0.11-0.59); #Neutrophils 6.1 thou/uL (1.40-6.50); %Basophils 0.2 % (0.0-1.0); %Lymphocytes 4.6 % (21.0-51.0); %Monocytes 7.2 % (0.0-10.0); Mean Corpuscular HGB CONC 33.9 g/dL (32.0-36.0); Mean Corpuscular Hemoglobin 33.8 pg (27.0-31.0); Mean Corpuscular Volume 99.5 fL (78.0-98.0); Mean Platelet Volume 7.5 fL (7.4-10.4); Platelet Count 239 thou/uL (130-400); RBC Distribution Width 11.6 % (11.5-14.5); Red Blood Cell (RBC) Count 2.66 mill/uL (4.70-6.10); White Blood Cell (WBC) Count 6.9 thou/uL (4.8-10.8)
[2021-12-07 04:28] LABS: Anion Gap 15 mmol/L (10-20); BUN (Urea Nitrogen) 6 mg/dL (8.4-25.7); Calc. Creatinine Clearance 98 mL/min (70-130); Calcium 7.9 mg/dL (7.8-10.44); Carbon Dioxide 25 mmol/L (23-31); Chloride 95 mmol/L (98-107); Estimated GFR 104; Glucose 162 mg/dL (80-115); Potassium 3.5 mmol/L (3.5-5.1); Sodium 131 mmol/L (136-145)
[2021-12-07] MEDS: Mometasone 200 MCG/Formoterol 5 MCG 120 PUFF INHALER INH SCH (07:43)
[2021-12-07] MEDS ORDERED: Potassium Chloride 20 MEQ TAB PO SCH (08:00)
[2021-12-07] MEDS: Aspirin 325 mg Enteric Coated Tablet PO SCH (09:06)
[2021-12-07] MEDS: Sodium Chloride 0.9% 1,000 ML IV SCH (09:24)
[2021-12-07] MEDS: Polyethylene Glycol 3350 17 GM Packet PER TUBE SCH (09:24)
[2021-12-07] MEDS: Senokot S 8.6-50 MG TAB PO SCH (09:25)
[2021-12-07] MEDS: Lansoprazole 3 MG/ML ORAL SUSPENSION PER TUBE SCH (09:38)
[2021-12-07 11:50] VITALS: TEMP 97.6
== END 2021-12-07 11:40 | disposition home or self-care (01) | DRG 37 ==
LOC: ERS 15:09 → CCU 18:07 → NEURO 12-04 22:24 → CCU 12-06 09:05
PROVIDERS: ADMIT Internal Medicine; ATTEND Hospitalist
PROC: 02HV33Z Insertion of Infusion Device into Superior Vena Cava, Percutaneous Approach (ICD-10-PCS; principal; 2021-12-02)
PROC: 5A1935Z Respiratory Ventilation, Less than 24 Consecutive Hours (ICD-10-PCS; 2021-12-02)
PROC: 0BH18EZ Insertion of Endotracheal Airway into Trachea, Via Natural or Artificial Opening Endoscopic (ICD-10-PCS; 2021-12-02)
PROC: 3E033XZ Introduction of Vasopressor into Peripheral Vein, Percutaneous Approach (ICD-10-PCS; 2021-12-02)
PROC: 03CH0ZZ Extirpation of Matter from Right Common Carotid Artery, Open Approach (ICD-10-PCS; 2021-12-06)
PROC: 03CM0ZZ Extirpation of Matter from Right External Carotid Artery, Open Approach (ICD-10-PCS; 2021-12-06)
PROC: 03CK0ZZ Extirpation of Matter from Right Internal Carotid Artery, Open Approach (ICD-10-PCS; 2021-12-06)
PROC: 03UK0JZ Supplement Right Internal Carotid Artery with Synthetic Substitute, Open Approach (ICD-10-PCS; 2021-12-06)
DX: I63.231 Cerebral infarction due to unspecified occlusion or stenosis of right carotid arteries (principal); J96.00 Acute respiratory failure, unspecified whether with hypoxia or hypercapnia; G93.41 Metabolic encephalopathy; R57.8 Other shock; E87.1 Hypo-osmolality and hyponatremia; F10.239 Alcohol dependence with withdrawal, unspecified; J44.9 Chronic obstructive pulmonary disease, unspecified; I10 Essential (primary) hypertension; E78.5 Hyperlipidemia, unspecified; M19.90 Unspecified osteoarthritis, unspecified site; I70.8 Atherosclerosis of other arteries; F17.210 Nicotine dependence, cigarettes, uncomplicated; E83.42 Hypomagnesemia; R31.9 Hematuria, unspecified; Z91.030 Bee allergy status; Z88.8 Allergy status to other drugs, medicaments and biological substances; Z78.1 Physical restraint status; Z79.899 Other long term (current) drug therapy; Z79.82 Long term (current) use of aspirin; Z20.822 Contact with and (suspected) exposure to COVID-19
CPT/HCPCS: 36415; 36416; 36600; 70450; 70496; 70498; 70551; 71045; 72125; 80048; 80053; 80061; 80306; 80307; 81003; 82805; 83735; 84100; 84146; 84443; 84484; 85025; 85610; 85730; 93005; 94002; 94003; 94640; 94664; 94760; 95706; 95819; 95957; C1768; J0171; J0690; J1100; J1170; J1642; J1644; J1650; J2250; J2370; J2405; J2704; J2720; J3010; J3411; J3475; J3490; J7042; J7050; J7120; J7620; Q9967; U0002